=== PATIENT | female | born 1935 | race Caucasian/White ===

== ENCOUNTER → 2020-04-23 08:57 | Outpatient (CLI) | payer MEDICARE, SELFPAY ==
--- NOTE | ~2020-04-23 | CT_ITS ---
EXAMINATION: CT lumbar spine wo con DATE: 04/23/2020 09:40 INDICATION: Lumbar spinal stenosis. TECHNIQUE: Computed tomography (CT) of the lumbar spine was performed without intravenous contrast. A utomated exposure control and iterative reconstruction technique were employed. The dose-length produ ct was 861.79 mGy-cm. COMPARISON: None FINDINGS: There is 14 degrees levoscoliosis of lumbar spine. There is 4 mm anterolisthesis of L4 on L 5. There is a burst fracture of L1 inferior endplate with 1/5 loss of height and 3 mm retropulsion of bone into central spinal canal, likely chronic. There is a burst fracture of L2 superior endplate wi th 1/5 loss of height and retropulsion of bone 4 mm into central spinal canal, likely subacute or chr onic. There is a burst fracture of L4 superior endplate with 2/5 loss of height and retropulsion of b one 4 mm into central spinal canal, likely chronic. There is a compression fracture of L5 inferior en dplate with 2/5 loss of height, likely chronic. There is mildly decreased disc height at L1-L2, moder ately decreased disc height at L3-L4, mildly decreased disc height at L4-L5, and severely decreased d isc height at L5-S1. The following disc levels are specifically discussed: L1-L2: The disc is bulging. There is mild bilateral facet joint osteoarthritis. There is mild left ne ural foraminal stenosis. There is mild central canal stenosis. L2-L3: The disc is bulging. There is mild bilateral facet joint osteoarthritis. There is mild bilater al neural foraminal stenosis. There is mild central canal stenosis. L3-L4: The disc is bulging. There is severe right and moderate left facet joint osteoarthritis. There is mild bilateral neural foraminal stenosis. There is mild central canal stenosis. L4-L5: The disc is bulging. There is severe bilateral facet joint osteoarthritis. There is mild bilat eral neural foraminal stenosis. There is mild central canal stenosis. L5-S1: The disc is bulging. There is severe bilateral facet joint osteoarthritis. There is mild right and moderate left neural foraminal stenosis. There is mild central canal stenosis. IMPRESSION: 1. Severe lumbar spondylosis. 2. Lumbar levoscoliosis. 3. Subacute versus chronic burst fracture of L2. Chronic fractures of L1, L4, and L5. Reviewed, dictated and finalized at location B. IMPRESSION: 1. Severe lumbar spondylosis. 2. Lumbar levoscoliosis. 3. Subacute versus chronic burst fracture of L2. Chronic fractures of L1, L4, a nd L5.
--- NOTE | ~2020-04-23 | CT_ITS ---
EXAMINATION: CT thoracic spine wo con EXAM DATE: 04/23/2020 09:39 INDICATION: Fracture of the lumbar vertebral body. Thoracic arthritis. TECHNIQUE: Spiral CT thoracic spine wo con was performed without contrast. Axial, coronal and sagit dora images were reviewed. The dose-length product (DLP) for this examination was 809.69 mGy-cm. The exposure was tailored according to patient size (auto mA exposure control), and iterative reconstruc tion (ASIR) was used as additional dose reduction technique. There is no prior study for comparison. FINDINGS: There is moderate mid thoracic disc disease from T6 through T9, mild at the other levels. T here is mild mid thoracic dextroscoliosis. Small thoracic endplate osteophytes. The vertebral bodies are aligned in the AP dimension. Minimal anterior wedge appearance to T7, probably chronic minimal co mpression. Paraspinal soft tissue is unremarkable. Cardiac pacemaker leads. No significant thoracic c entral canal or neural foraminal stenosis identified. Paraspinal soft tissue is unremarkable. IMPRESSION: 1. Moderate mid thoracic disc disease, mild thoracic arthropathy. 2. Mild mid thoracic dextroscoliosis. 3. Minimal chronic anterior wedging T7. 4. No acute findings. Reviewed, dictated and finalized at location A.
== END ==
DX: S32.000A Wedge compression fracture of unspecified lumbar vertebra, initial encounter for closed fracture (principal); M48.04 Spinal stenosis, thoracic region; M48.062 Spinal stenosis, lumbar region with neurogenic claudication; X58.XXXA Exposure to other specified factors, initial encounter; M51.24 Other intervertebral disc displacement, thoracic region; M47.896 Other spondylosis, lumbar region
CPT/HCPCS: 72128; 72131

== ENCOUNTER 2020-10-03 15:05 | IRF | payer MEDICARE, SELFPAY ==
--- NOTE | ~2020-10-03 | CT_ITS ---
EXAMINATION: CT brain wo con DATE: 10/13/2020 15:48 INDICATION: Mental status change TECHNIQUE: Computed tomography (CT) of the head was performed without intravenous contrast. The mA wa s adjusted according to patient size. Iterative reconstruction technique was employed. Exam dose: 60 5.33 mGy-cm total exam DLP. COMPARISON: None FINDINGS: There is a moderately large chronic right subdural hematoma measuring up to 18 mm in depth. There is effacement of the cortical sulci of the right cerebral hemisphere and minimal leftward shif t of the midline structures. There is prominent nonspecific patchy diminished attenuation of the cerebral white matter, likely due to chronic small vessel ischemic changes. Prominent bilateral carotid siphon internal carotid artery calcifications as well as bilateral vertebral artery and basilar artery calcifications are noted. No intracranial mass lesion or parenchymal hemorrhage is evident. There is central and cortical cerebral and cerebellar atrophy. No fracture or bone destruction of the cranial vault. The mastoid air cells and included paranasal si nuses are unremarkable. IMPRESSION: Large chronic right subdural hematoma with effacement of the right cerebral cortical sul ci and mild leftward shift of the midline Cerebral atherosclerosis and chronic small vessel ischemic changes of the cerebral white matter Central and cortical cerebral and cerebellar atrophy On 10/13/[address] Kelley telephoned the report to [facility] Nurse Kalen, who indicated she would contact Dr. Leblanc. Reviewed, dictated and finalized at Location A. Reviewed, dictated and finalized at location A. ICATIONS SYSTEMS ANALYST IMPRESSION: Large chronic right subdural hematoma with effacement of the right cerebral cortical sulci and mild leftward shift of the midline Cerebral atherosclerosis and chronic small vessel ischemic changes of the cereb ral white matter Central and cortical cerebral and cerebellar atrophy On 10/13/[address] Kelley telephoned the report to [facility] Nurse terry Higuera ho indicated she would contact Dr. Dove
[2020-10-03 15:05] VITALS: BP 134/65; PULSE 73; RESP 16; TEMP 36.6; O2SAT 93; BMI 26.3
--- NOTE | 2020-10-03 15:12 | ADMGEN ---
This patient, Elinor Mitchell, was admitted to [facility] Room 224-02. Patient/family oriented to hospital policies and general routines including ID bracelet, bed and alarms, visiting hours, pain management, procedures, bathroom and other care routines, personal items, smoking policy, room service/diet, and visiting hours. Information on how to activate the Rapid Response Team has been discussed. Patient/Family are encouraged to report perceived risks to care and to ask questions if they do not understand what they are told or what they should do.
[2020-10-03] MEDS: DOCUSATE SODIUM 100 MG CAPSULE PO (19:52)
[2020-10-03] MEDS: HEPARIN SODIUM 5,000 UNITS/ML VIAL 5000 UNITS SUB-Q (19:52)
[2020-10-03] MEDS: levETIRAcetam 500 MG TABLET PO (19:52)
[2020-10-03] MEDS: LACOSAMIDE (*CRX) 100 MG TABLET PO (19:52)
[2020-10-03] MEDS: MELATONIN 3 MG TABLET PO (19:53)
[2020-10-03 22:00] VITALS: BP 138/60; PULSE 68; RESP 20; TEMP 36.1; O2SAT 95
[2020-10-04 05:24] VITALS: BP 166/72; PULSE 72; RESP 20; TEMP 36.3; O2SAT 96
[2020-10-04 07:01] LABS: Basophils Absolute Auto 0.1 K/mm3 (0.0-0.1); Basophils Percent Auto 0.8 % (0.2-1.2); Eosinophils Absolute Auto 0.1 K/mm3 (0-0.3); Eosinophils Percent Auto 1.3 % (0-4.4); Hematocrit 31.2 % (37.0-47.0); Hemoglobin 10.4 g/dL (12.0-15.0); Immature Granulocyte Absolute 0.03 K/mm3 (0.00-0.031); Immature Granulocyte Percent A 0.4 % (0-0.5); Lymphocytes Percent Auto 17.8 % (18.3-44.2); Mean Corpuscular HGB Conc 33.3 g/dl (32-36); Mean Corpuscular Hemoglobin 32.7 pg (26-34); Mean Corpuscular Volume 98.1 fl (80-100); Mean Platelet Volume 10.6 fl (7.4-10.4); Monocytes Absolute Auto 0.8 K/mm3 (0.1-0.6); Monocytes Percent Auto 10.2 % (2.6-8.5); Neutrophils Absolute Auto 5.5 K/mm3 (1.3-6.7); Neutrophils Percent Auto 69.5 % (45.5-73.1); Platelet Count Result 229 k/mm3 (150-375); Red Blood Count 3.18 M/mm3 (4.2-5.4); Red Cell Distribution Width 12.1 % (11.5-14.5); White Blood Count 7.9 K/mm3 (4.5-10.0)
[2020-10-04 07:17] LABS: Anion Gap 3 mmol/L (8-16); Blood Urea Nitrogen 21 mg/dL (7-17); Calcium 9.7 mg/dL (8.4-10.2); Carbon Dioxide 30 mmol/L (22-30); Chloride 107 mmol/L (98-107); Cholesterol 173 mg/dL (0-200); Estimated CRCL calculation 28 ml/min; Estimated Glomerular Filt Rate 43; Glucose 94 mg/dL (65-105); HDL Direct 39 mg/dL; Potassium 4.1 mmol/L (3.4-5.0); Sodium 140 mmol/L (137-145); Triglycerides 192 mg/dL (<150)
[2020-10-04 07:28] LABS: LDL Cholesterol Direct 107 mg/dL
[2020-10-04] MEDS: CHOLECALCIFEROL 1,000 UNITS TABLET 5000 UNITS PO (09:39)
[2020-10-04] MEDS: EZETIMIBE 10 MG TABLET PO (09:40)
[2020-10-04] MEDS: HEPARIN SODIUM 5,000 UNITS/ML VIAL 5000 UNITS SUB-Q ×2 (09:40→20:46)
[2020-10-04] MEDS: DOCUSATE SODIUM 100 MG CAPSULE PO ×2 (09:40→20:47)
[2020-10-04] MEDS: LACOSAMIDE (*CRX) 100 MG TABLET PO ×2 (10:02→20:47)
[2020-10-04] MEDS: SENNOSIDES 8.6 MG TABLET PO ×2 (10:04→20:47)
[2020-10-04] MEDS: PANTOPRAZOLE 40 MG TABLET PO (10:21)
--- NOTE | 2020-10-04 10:54 | WPDREHABHP ---
H&P: HPI History of Present Illness Date/Time: 10/04/20 10:54 Chief Complaint: brain dysfunction with right subdural hematoma no surgical intervention Narrative: Elinor Mitchell is a 85 year old femaleHISTORY OF PRESENT ILLNESS: The patient's primary rehab impairment category is brain dysfunction that is traumatic in nature The etiologic diagnosis is acute traumatic right subdural hematoma I saw this patient [id number] on October 04, 2020 at 10:00 a.m. The patient is an 85 years old right-handed female with past medical history of hypertension, hyperlipidemia, atrial fibrillation, cerebrovascular accident with right-sided weakness, myocardial infarction, permanent pacemaker placement, and chronic kidney disease who presented to a local hospital on September 19, 2020 after suffering a fall at home on September 18, 2020. Patient reported that she was putting place away when she slipped backwards and fell onto a chair before falling to the floor and hitting her head. The patient denied loss of consciousness. The patient reported feeling fine afterwards but awoke the day of presentation with a headache and upper back pain. Patient endorsed taking Tylenol but vomiting and felt queasy when lying flat. Initial head CT scan revealed 1.6cm acute subdural hematoma. CT of the cervical spine revealed no fractures. She was transferred to [facility] for neurological evaluation and treatment. Neurosurgical service was consulted who ordered an urgent head thoracic and lumbar spine CT scan. The patient was also placed on Keppra b.i.d. prophylactically. During her hospitalization the patient develops seizures and required continued Keppra and lacosamide. Significant conditions included acute pain, hypoactive ICU delirium, shock due to sepsis from a urinary tract infection and aspiration pneumonia, and infiltrated right upper extremity peripheral intravenous line, atrial fibrillation, bradycardia, hyperlipidemia, acute hypoxic respiratory failure, acute kidney injury on stage 4 chronic kidney disease and dysphagia. The patient pain was currently controlled with oral analgesics, she was placed on ramelteon for the ICU delirium and placed on sleep hygiene with the improvement she was given intravenous vancomycin cefepime total of 7 days, her right upper extremity was being elevated with warm compresses with no evidence of tissue necrosis, atrial fibrillation was stable and being monitored since patient was off anticoagulation given her subdural hematoma, patient has a pacemaker and the bradycardia was asymptomatic hyperlipidemia was being treated with home dose of ezetemibe, patient has acute respiratory failure had resolved and she was currently on room air and being treated with CP T vest t.i.d. to aid with secretion mobilization, the patient BUN and creatinine continued to be monitored and her medications were renally dosed, the patient diet had been advanced to mechanical soft diet with nectar thickened liquids. She was discharged to rehab on subcutaneous heparin q.12 hours for DVT prophylaxis and was to remain on this until she has completed rehab and is discharged. #covid: the patient has not traveled outside the [place] or had contact with someone who is ill that is travel outside the [place] in the past 21 days. The patient has not traveled to an area of the [place] that is experiencing known transmission of the Coronavirus and has not had close personal contact with anyone that has. The patient does not have a fever. The patient is not experiencing lower respiratory illness symptoms. The patient has however during her hospitalization at difficulty with breathing related to aspiration pneumonia that has been treated. She is currently on room air patient tested negative for COVID-19 on October 01, 2020. therapy was initiated at the acute care facility and the patient was transferred to us from [facility] on October 03, 2020 FALLS OR SURGERIES: the patient has
[2020-10-04] MEDS: NIFEdipine 30 MG TAB.ER.24 PO (11:50)
[2020-10-04] MEDS: ISOSORBIDE MONONITRATE 60 MG TAB.ER.24H PO (11:50)
[2020-10-04] MEDS: METOPROLOL SUCCINATE EXT REL 100 MG TABCR PO (11:50)
[2020-10-04] MEDS: levETIRAcetam 500 MG TABLET PO ×2 (11:51→20:46)
[2020-10-04 12:06] VITALS: BMI 26.3
--- NOTE | 2020-10-04 12:39 | PCNSR ---
On 10/04/20, the student, Violette Ramos, provided care and completed [facility] on this patient. I have reviewed the student's documentation and agree with the findings.
--- NOTE | 2020-10-04 12:57 | PCSTNOTE ---
Please refer to the Bedside Swallow Evaluation in the EMR. Please note, silent aspiration cannot be ruled out at bedside.
[2020-10-04 14:00] VITALS: BP 94/56; PULSE 72; RESP 18; TEMP 36.9; O2SAT 93
--- NOTE | 2020-10-04 15:35 | RPD ---
INDIVIDUALIZED PLAN OF CARE FOR Elinor Mitchell Brief Synthesis of Pre-Admission Screen, Post-Admission Evaluation and Therapy Evaluations: The patient presents to rehab with an acute traumatic right subdural hematoma. Comorbidities include atrial fibrillation, right parietal intraparenchymal hemorrhage, small left parietal intraparenchymal hemorrhage with brain compression, seizures, acute pain, ICU delirium, shock due to sepsis, pneumonia, urinary tract infection, hyperlipidemia, coagulopathy, normocytic anemia, atelectasis, acute on chronic kidney injury (stage 4), electrolyte imbalance, and hyperglycemia. This patient requires intensive therapies to restore lost function due to an acute traumatic right subdural hematoma, right intraparenchymal hemorrhage with brain compression, and anticoagulation induced coagulopathy in order to maximize their functional level of independence and quality of life. The complexity of the patient's medical management, nursing, and therapy needs require an inpatient rehab hospital stay with a physician-led interdisciplinary team approach. The patient?s needs will be best met in an intensive program vs. at a lower level of care. The patient requires physician services for neurology services, medical oversight, and coordination of care. Emotional needs will be monitored as depression is a common sequelae of neurological events. The patient needs physician monitoring and treatment of anemia, seizures, urinary tract infection, atrial fibrillation, bradycardia, acute hypoxic respiratory failure due to aspiration pneumonia, acute on chronic kidney injury, dysphagia, monitoring for adverse reactions to new medications, monitoring of infection, pain control. The patient requires nursing services for frequent neuro checks, anticoagulation therapy, medication management and education, pressure relief and skin care management, monitoring of labs, bowel and bladder training, and fall/safety precautions. Deficits include:ADLs, Balance, Cognition, Endurance, Family Training/Education, Mobility, Pain Management, ROM, Safety, Strength, Transfers, and Swallowing. Entry Level Manufacturing Engineer/Case Management for: Discharge Planning and Patient/Family Counseling Physical Therapy: 5 days per week for 60 minutes. Treatments may include: Therapeutic Exercise, Gait Training, Neuromuscular Re-education, Transfer Training, Community Reintegration, Bed Mobility, Patient/Family Education, Wheelchair Mobility Group Therapy/Concurrent Therapy Rationales: -Improve attention span during functional activities in a distracted environment. -Enhance problem solving and/or adequate judgment skills during functional activities in a distracted environment. -Promote increased safety awareness in a distracted environment to reduce fall risk with functional tasks, transfers, and ambulation to allow a more safe, self-sufficient return to the home environment. -Improve dynamic balance skills to promote safety and independence with functional activities in a distracted environment for maximum gain. Occupational Therapy: 5 days per week for 60 minutes. Treatments may include: Therapeutic Exercise, Therapeutic Activity, Cognitive Training, Self-Care Transfer Training, Community Reintegration, Home Management, Patient/Family Education, Wheelchair Mobility Training, Energy Conservation Training Group Therapy/Concurrent Therapy Rationales: -Allow therapist to observe and teach generalization and carry-over of skills learned in individual therapy. -Enhance problem solving and sequencing skills during therapeutic activities in a distracted environment. -Promote increased safety awareness in a realistic setting to reduce fall risk with functional tasks due to visual and verbal distractions. -Increase functional level with ADLs, ADL transfers and use of adaptive equipment through therapeutic activities with others while promoting safety to allow a more safe, self-sufficient return home. Speech Therapy:
[2020-10-04 20:00] VITALS: PULSE 72; RESP 18; O2SAT 93
[2020-10-04] MEDS: MELATONIN 3 MG TABLET PO (20:47)
[2020-10-04 22:00] VITALS: BP 127/61; PULSE 80; RESP 20; TEMP 37.3; O2SAT 93
[2020-10-05 05:25] VITALS: BP 160/82; PULSE 74; RESP 18; TEMP 37.2; O2SAT 93
[2020-10-05 08:30] VITALS: BMI 10.0
[2020-10-05] MEDS: DOCUSATE SODIUM 100 MG CAPSULE PO ×2 (08:44→20:15)
[2020-10-05] MEDS: CHOLECALCIFEROL 1,000 UNITS TABLET 5000 UNITS PO (08:44)
[2020-10-05] MEDS: EZETIMIBE 10 MG TABLET PO (08:44)
[2020-10-05] MEDS: HEPARIN SODIUM 5,000 UNITS/ML VIAL 5000 UNITS SUB-Q ×2 (08:44→20:15)
[2020-10-05] MEDS: ISOSORBIDE MONONITRATE 60 MG TAB.ER.24H PO (08:44)
[2020-10-05] MEDS: levETIRAcetam 500 MG TABLET PO ×2 (08:45→20:15)
[2020-10-05 08:46] VITALS: PULSE 74
[2020-10-05] MEDS: PANTOPRAZOLE 40 MG TABLET PO (08:46)
[2020-10-05] MEDS: METOPROLOL SUCCINATE EXT REL 100 MG TABCR PO (08:46)
[2020-10-05] MEDS: SENNOSIDES 8.6 MG TABLET PO ×2 (08:46→20:15)
[2020-10-05] MEDS: NIFEdipine 30 MG TAB.ER.24 PO (08:46)
[2020-10-05] MEDS: LACOSAMIDE (*CRX) 100 MG TABLET PO ×2 (08:47→20:14)
[2020-10-05 14:00] VITALS: BP 110/50; PULSE 71; RESP 18; TEMP 37.1; O2SAT 94
--- NOTE | 2020-10-05 14:43 | PC.NURSE ---
1400, patient unable to comprehend the concept of using the incentive spirometer.
--- NOTE | 2020-10-05 15:18 | PC.NURSE ---
Attempted to return patient to bed with sandie amado and patient was not participating and very lethargic; needing to use sternal rub to get any movement or eyes open. After returning to bed, had more movement and later rolled over on own. Earlier patient was very sleepy with therapy. Called Dr. Leblanc and he ordered Decadron/Dexamethasone 4 mg PO Q6 hours x5 days, believing it is from swelling of the brain. Will continue to monitor.
[2020-10-05] MEDS: DEXAMETHASONE 4 MG TABLET PO ×2 (17:19→23:32)
[2020-10-05 20:00] VITALS: PULSE 71; RESP 18; O2SAT 94
[2020-10-05] MEDS: MELATONIN 3 MG TABLET PO (20:14)
[2020-10-05 21:29] VITALS: BP 144/63; PULSE 77; RESP 18; TEMP 36.3; O2SAT 92
[2020-10-06] MEDS: DEXAMETHASONE 4 MG TABLET PO ×4 (05:58→23:53)
[2020-10-06 06:00] VITALS: BP 149/71; PULSE 72; RESP 18; TEMP 36.3; O2SAT 92
[2020-10-06] MEDS: HEPARIN SODIUM 5,000 UNITS/ML VIAL 5000 UNITS SUB-Q ×2 (09:02→20:56)
[2020-10-06] MEDS: DOCUSATE SODIUM 100 MG CAPSULE PO ×2 (09:03→20:55)
[2020-10-06] MEDS: SENNOSIDES 8.6 MG TABLET PO ×2 (09:03→20:55)
[2020-10-06] MEDS: EZETIMIBE 10 MG TABLET PO (09:03)
[2020-10-06] MEDS: PANTOPRAZOLE 40 MG TABLET PO (09:03)
[2020-10-06] MEDS: ISOSORBIDE MONONITRATE 60 MG TAB.ER.24H PO (09:03)
[2020-10-06] MEDS: CHOLECALCIFEROL 1,000 UNITS TABLET 5000 UNITS PO (09:03)
[2020-10-06 09:04] VITALS: PULSE 72
[2020-10-06] MEDS: METOPROLOL SUCCINATE EXT REL 100 MG TABCR PO (09:04)
[2020-10-06] MEDS: levETIRAcetam 500 MG TABLET PO ×2 (09:04→20:55)
[2020-10-06] MEDS: NIFEdipine 30 MG TAB.ER.24 PO (09:04)
[2020-10-06] MEDS: LACOSAMIDE (*CRX) 100 MG TABLET PO ×2 (09:06→20:55)
--- NOTE | 2020-10-06 11:44 | WPDNEURORHBP ---
Subjective Date/time seen: 10/06/20 11:44 85 years old with right subdural hematoma but no surgical intervention and resultant brain dysfunction in addition to the history of hypertension, hyperlipidemia, atrial fibrillation, and cerebrovascular accident with right-sided weakness she has a permanent pacemakerchronic kidney disease, she remains intermittently drowsy but definitely awake alert at times and could carry some of the conversation she has remained afebrile with temp of 36.3? pulse 72 respirations 18 pulse ox 92% and the blood pressure is 149/71 her last labs was on 122 with no significant abnormalities, she is being carried out on vitamin-D [place], on Zetia, on DVT prophylaxis, Keppra and lacosamide for seizure prevention and also started on 5 days course of dexamethasone. Review of Systems Review of Systems: All systems reviewed & are unremarkable except as noted in HPI and below Functional Status Ambulation Ability Ambulation Assistive Devices: Parallel Bars Exam Const: General: cooperative, comfortable, alert and awake Nutritional Appearance: average body habitus Orientation/consciousness: oriented to place and Other orientation findings ( at times obtunded) HENMT: Head: normal to inspection General nose exam: Normal external nose present and No nasal discharge present Face and sinus: normal facial exam Mouth: Yes Normal oral and palatal mucosa present Eyes: General: appearance normal, both eyes and all related structures Neck: Neck: full ROM Resp: Effort & Inspection: normal respiratory effort and decreased respiratory effort Auscultation: clear to auscultation bilaterally Cardio: Jugular venous distension: no JVD Rate: regular rate Rhythm: regular rhythm GI: Auscultation: normal bowel sounds Skin: General skin exam: no rashes or lesions noted Neuro: General: oriented to person and moves all extremities Cranial nerves: Yes CN's II-XII intact bilaterally, Yes Equal, round and reactive pupils present, Yes Bilaterally intact EOM present, Yes Nystagmus not present, Yes facial symmetry, Yes Midline tongue present and Yes Ability to bilaterally elevate shoulders present Speech: Other speech findings present (Neuro) ( slow responses but appropriate) Gait exam (Neuro): Unable to assess gait Motor exam (neuro): Abnormal motor strength present ( generally decreased superimposed on underlying right-sided weakness) Psych: Mental Status: other ( slow responses) Speech and movement: Slowed speech present (Psych) Affect: Sad affect present Attitude: cooperative Thought process: Other thought process findings present ( not much conversation) Insight: Limited insight present (Psych) Judgement: Limited judgement present (Psych) Objective Data Vital Signs Vital Signs: Vital Signs - 24 hr 10/05/20 14:00 10/05/20 20:00 10/05/20 21:29 Temperature 37.1 C 36.3 C L Pulse Rate 71 71 77 Respiratory Rate 18 18 18 Blood Pressure 110/50 L 144/63 H Pulse Oximetry 94 94 92 10/06/20 06:00 10/06/20 09:04 Temperature 36.3 C L Pulse Rate 72 72 Respiratory Rate 18 Blood Pressure 149/71 H Pulse Oximetry 92 Intake/Output Intake/Output: Intake & Output 10/03/20 10/04/20 10/05/20 10/06/20 23:59 23:59 23:59 23:59 Intake Total 720 1080 240 Balance 720 1080 240 Meds/Results Medications: Active Medications Generic Name Dose Route Start Last Admin Trade Name Freq PRN Reason Stop Dose Admin Acetaminophen 650 mg 10/03/20 15:53 Acetaminophen 325 Mg Tablet PO Q4H PRN Pain Bisacodyl 10 mg 10/03/20 15:53 Bisacodyl 10 Mg Suppository RECTAL DAILY PRN Constipation Dexamethasone 4 mg 10/05/20 18:00 10/06/20 05:58 Dexamethasone 4 Mg Tablet PO 4 mg Q6HR ANTONIO Administration Docusate Sodium 100 mg 10/03/20 21:00 10/06/20 09:03 Docusate Sodium 100 Mg Capsule PO 100 mg Q12HR ANTONIO Administration Ezetimibe 10 mg 10/04/20 09:00 10/06/20 09:03 Ezetimibe 10 Mg Tabl
[2020-10-06 14:00] VITALS: BP 121/61; PULSE 76; RESP 18; TEMP 37.1; O2SAT 96
[2020-10-06 20:00] VITALS: PULSE 77; RESP 20; O2SAT 96
[2020-10-06 20:38] VITALS: BP 147/73; PULSE 77; RESP 20; TEMP 36.6; O2SAT 96
[2020-10-06] MEDS: MELATONIN 3 MG TABLET PO (20:54)
[2020-10-07 05:18] VITALS: BP 183/86; PULSE 77; RESP 20; TEMP 36.6; O2SAT 96
[2020-10-07] MEDS: DEXAMETHASONE 4 MG TABLET PO ×4 (05:45→23:59)
[2020-10-07] MEDS: lisinopriL 10 MG TABLET PO (05:45)
[2020-10-07] MEDS: CHOLECALCIFEROL 1,000 UNITS TABLET 5000 UNITS PO (09:04)
[2020-10-07] MEDS: HEPARIN SODIUM 5,000 UNITS/ML VIAL 5000 UNITS SUB-Q ×2 (09:05→21:09)
[2020-10-07] MEDS: DOCUSATE SODIUM 100 MG CAPSULE PO ×2 (09:05→21:09)
[2020-10-07] MEDS: ISOSORBIDE MONONITRATE 60 MG TAB.ER.24H PO (09:05)
[2020-10-07] MEDS: levETIRAcetam 500 MG TABLET PO ×2 (09:05→21:08)
[2020-10-07] MEDS: EZETIMIBE 10 MG TABLET PO (09:05)
[2020-10-07] MEDS: METOPROLOL SUCCINATE EXT REL 100 MG TABCR PO (09:06)
[2020-10-07] MEDS: NIFEdipine 30 MG TAB.ER.24 PO (09:06)
[2020-10-07] MEDS: PANTOPRAZOLE 40 MG TABLET PO (09:06)
[2020-10-07] MEDS: SENNOSIDES 8.6 MG TABLET PO ×2 (09:06→21:08)
[2020-10-07] MEDS: LACOSAMIDE (*CRX) 100 MG TABLET PO ×2 (09:09→21:09)
--- NOTE | 2020-10-07 12:59 | PCNFU ---
Nutrition Follow-Up Complete: Inadequate energy needs related to poor appetite as evidenced by patient refusing to eat at meals. Goal: Patient to consume 75% of meals/supplements or greater Patient has made major improvements since the last time I spoke with her. She is now consuming 75-100% of meals. No new goal at this time. Pt current nutrition is a regular diet level 7 with soft and bite sized level 6. Last recorded weight is 71.8 kg. Bowel Motility: + BM 10/06/2020 Labs Reviewed: No new labs reported. Meds Noted: zetia, protonix, toprol xl, keppra tablet, vimpat, imdur, colace capsule Additional Notes: Patient seen for a follow up today. Her oral intake has gotten significantly better. She is enjoying all flavors of ensure enlive which is being provided TID. Will monitor, weight, labs, medications, and oral intake every 5 days.
[2020-10-07 14:00] VITALS: BP 115/64; PULSE 68; RESP 20; TEMP 37.1; O2SAT 99
--- NOTE | 2020-10-07 14:26 | PCNSR ---
On 10/07/20, the student, Violette Ramos, provided care and completed [facility] documentation on this patient. I have reviewed the student's documentation and agree with the findings. Noted patient is also receiving level 2 liquids in addition to level 6 solids.
[2020-10-07 20:00] VITALS: PULSE 70; RESP 14; O2SAT 94
[2020-10-07] MEDS: MELATONIN 3 MG TABLET PO (21:08)
[2020-10-07 21:25] VITALS: BP 152/81; PULSE 70; RESP 14; TEMP 36.3; O2SAT 94
[2020-10-08 05:34] VITALS: BP 166/84; PULSE 72; RESP 14; TEMP 35.8; O2SAT 95
[2020-10-08] MEDS: DEXAMETHASONE 4 MG TABLET PO ×3 (05:39→17:17)
[2020-10-08] MEDS: ISOSORBIDE MONONITRATE 60 MG TAB.ER.24H PO (05:39)
--- NOTE | 2020-10-08 05:41 | PC.NURSE ---
BP at 0530 was 166/84. 0900 dose of Isosorbide given early to address. Will notify oncoming staff and Dr. Leblanc.
[2020-10-08] MEDS: CHOLECALCIFEROL 1,000 UNITS TABLET 5000 UNITS PO (08:22)
[2020-10-08] MEDS: DOCUSATE SODIUM 100 MG CAPSULE PO ×2 (08:22→21:43)
[2020-10-08] MEDS: levETIRAcetam 500 MG TABLET PO ×2 (08:23→21:43)
[2020-10-08] MEDS: HEPARIN SODIUM 5,000 UNITS/ML VIAL 5000 UNITS SUB-Q ×2 (08:23→21:44)
[2020-10-08] MEDS: EZETIMIBE 10 MG TABLET PO (08:23)
[2020-10-08] MEDS: NIFEdipine 30 MG TAB.ER.24 PO (08:24)
[2020-10-08] MEDS: SENNOSIDES 8.6 MG TABLET PO ×2 (08:24→21:43)
[2020-10-08] MEDS: PANTOPRAZOLE 40 MG TABLET PO (08:24)
[2020-10-08] MEDS: METOPROLOL SUCCINATE EXT REL 100 MG TABCR PO (08:24)
[2020-10-08] MEDS: LACOSAMIDE (*CRX) 100 MG TABLET PO ×2 (08:30→21:43)
--- NOTE | 2020-10-08 11:22 | WPDNEURORHBP ---
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 respiration 14 pulse 72 blood pressure 166/84 Review of Systems Review of Systems: All systems reviewed & are unremarkable except as noted in HPI and below Functional Status Ambulation Ability Ambulation Assistive Devices: Walker, Wheeled Exam Const: General: comfortable, no acute distress, awake and anxious Nutritional Appearance: well nourished Orientation/consciousness: oriented to person HENMT: Ears: hearing grossly normal bilaterally General nose exam: Normal external nose present and No nasal discharge present Eyes: General: appearance normal, both eyes and all related structures Alignment and Position: alignment normal Periorbital: periorbital findings normal Eyelids: eyelids normal Conjunctivae: conjunctivae normal Cornea: corneas normal Pupils: Equal, round and reactive pupils present EOM: EOMs intact bilaterally Neck: Neck: full ROM and no lymphadenopathy Resp: Effort & Inspection: normal respiratory effort Auscultation: clear to auscultation bilaterally Cardio: Jugular venous distension: no JVD Rate: regular rate Rhythm: regular rhythm Neuro: General: oriented to person and confusion Cranial nerves: Yes CN's II-XII intact bilaterally Cognition (Neuro): abnormal cognition ( noted to have some hallucination) Gait exam (Neuro): Unable to assess gait Motor exam (neuro): Abnormal motor strength present Sensory Exam: Sensory deficit (Neuro) Deep tendon reflexes (DTR's): Right triceps reflex intensity grade: 1+, Left triceps reflex intensity grade: 1+, Rt Biceps (C5, C6): 1+, Left biceps reflex intensity grade: 1+, Right brachioradialis reflex intensity grade: 1+, Left brachioradialis reflex intensity grade: 1+, Right patellar reflex intensity grade: 1+ and Left patellar reflex intensity grade: 1+ Psych: Mental Status: other ( intermittent confusion and today noted by the nurses as well that she is h) Objective Data Vital Signs Vital Signs: Vital Signs - 24 hr 10/07/20 14:00 10/07/20 20:00 10/07/20 21:25 Temperature 37.1 C 36.3 C L Pulse Rate 68 70 70 Respiratory Rate 20 14 14 Blood Pressure 115/64 152/81 H Pulse Oximetry 99 94 94 10/08/20 05:34 Temperature 35.8 C L Pulse Rate 72 Respiratory Rate 14 Blood Pressure 166/84 H Pulse Oximetry 95 Intake/Output Intake/Output: Intake & Output 10/05/20 10/06/20 10/07/20 10/08/20 23:59 23:59 23:59 23:59 Intake Total 5151 836 7874 240 Balance 7525 599 8480 240 Meds/Results Medications: Active Medications Generic Name Dose Route Start Last Admin Trade Name Freq PRN Reason Stop Dose Admin Acetaminophen 650 mg 10/03/20 15:53 Acetaminophen 325 Mg Tablet PO Q4H PRN Pain Bisacodyl 10 mg 10/03/20 15:53 Bisacodyl 10 Mg Suppository RECTAL DAILY PRN Constipation Dexamethasone 4 mg 10/05/20 18:00 10/08/20 05:39 Dexamethasone 4 Mg Tablet PO 4 mg Q6HR ANTONIO Administration Docusate Sodium 100 mg 10/03/20 21:00 10/08/20 08:22 Docusate Sodium 100 Mg Capsule PO 100 mg Q12HR ANTONIO Administration Ezetimibe 10 mg 10/04/20 09:00 10/08/20 08:23 Ezetimibe 10 Mg Tablet PO 10 mg DAILY ANTONIO Administration Heparin Sodium (Porcine) 5,000 units 10/03/20 21:00 10/08/20 08:23 Heparin Sodium 5,000 Units/Ml Vial SUB-Q 5,000 units Q12HR ANTONIO Administration Isosorbide Mononitrate 60 mg 10/04/20 09:00 10/08/20 05:39 Isosorbide Mononitrate 60 Mg Tab.Er.24h PO 60 mg DAILY ANTONIO Administration Lacosamide 100 mg 10/03/20 21:00 10/08/20 08:30 Lacosamide (*Crx) 100 Mg Tablet PO 100 mg Q12HR ANTONIO Administra
[2020-10-08 14:00] VITALS: BP 131/71; PULSE 70; RESP 18; TEMP 36.6; O2SAT 92
[2020-10-08 20:00] VITALS: PULSE 70; RESP 18; O2SAT 92
[2020-10-08] MEDS: MELATONIN 3 MG TABLET PO (21:43)
[2020-10-08 22:00] VITALS: BP 135/64; PULSE 79; RESP 18; TEMP 36.8; O2SAT 97
[2020-10-09] MEDS: DEXAMETHASONE 4 MG TABLET PO ×4 (00:13→17:25)
[2020-10-09 06:00] VITALS: BP 126/74; PULSE 72; RESP 20; TEMP 36.7; O2SAT 97
[2020-10-09] MEDS: HEPARIN SODIUM 5,000 UNITS/ML VIAL 5000 UNITS SUB-Q (09:05)
[2020-10-09] MEDS: ISOSORBIDE MONONITRATE 60 MG TAB.ER.24H PO (09:05)
[2020-10-09] MEDS: DOCUSATE SODIUM 100 MG CAPSULE PO ×2 (09:05→20:12)
[2020-10-09] MEDS: levETIRAcetam 500 MG TABLET PO ×2 (09:05→20:12)
[2020-10-09] MEDS: NIFEdipine 30 MG TAB.ER.24 PO (09:05)
[2020-10-09] MEDS: SENNOSIDES 8.6 MG TABLET PO ×2 (09:05→20:12)
[2020-10-09 09:06] VITALS: PULSE 72
[2020-10-09] MEDS: CHOLECALCIFEROL 1,000 UNITS TABLET 5000 UNITS PO (09:06)
[2020-10-09] MEDS: PANTOPRAZOLE 40 MG TABLET PO (09:06)
[2020-10-09] MEDS: EZETIMIBE 10 MG TABLET PO (09:06)
[2020-10-09] MEDS: METOPROLOL SUCCINATE EXT REL 100 MG TABCR PO (09:06)
[2020-10-09] MEDS: LACOSAMIDE (*CRX) 100 MG TABLET PO ×2 (09:08→20:12)
--- NOTE | 2020-10-09 10:05 | WPDNEURORHBP ---
Subjective Date/time seen: 10/09/20 10:05 85 years old with right-sided subdural hematoma but no surgical intervention and resultant brain dysfunction has been X is improving significantly Review of Systems Review of Systems: All systems reviewed & are unremarkable except as noted in HPI and below Functional Status Ambulation Ability Ability to Ambulate 10 Feet: Minimum Assistance X 1 Ambulation Assistive Devices: Walker, Wheeled Exam Const: General: cooperative, comfortable and no acute distress Nutritional Appearance: well nourished Orientation/consciousness: patient oriented x3 Limitations: no limitations Eyes: General: appearance normal, both eyes and all related structures Periorbital: periorbital findings normal Eyelids: eyelids normal Conjunctivae: conjunctivae normal Sclera: sclerae normal Cornea: corneas normal Pupils: Equal, round and reactive pupils present EOM: EOMs intact bilaterally Neck: Neck: full ROM and no lymphadenopathy Resp: Effort & Inspection: able to speak in complete sentences Auscultation: clear to auscultation bilaterally Cardio: Jugular venous distension: no JVD Rate: regular rate Rhythm: regular rhythm GI: Auscultation: normal bowel sounds Neuro: General: oriented to person and oriented to place Cranial nerves: Yes CN's II-XII intact bilaterally, Yes Equal, round and reactive pupils present, Yes Nystagmus not present, Yes Normal facial strength present, Yes Midline tongue present, Yes Normal hearing present and Yes Ability to bilaterally elevate shoulders present Cognition (Neuro): normal cognition Gait exam (Neuro): Unable to assess gait Motor exam (neuro): Abnormal motor strength present Sensory Exam: normal sensation Psych: Appearance: grossly normal Mental Status: mental status grossly normal Affect: normal affect Attitude: cooperative Thought process: Normal thought process present Thought content: Yes Normal thought content present Insight: Good insight present (Psych) Judgement: Good judgement present (Psych) Objective Data Vital Signs Vital Signs: Vital Signs - 24 hr 10/08/20 14:00 10/08/20 20:00 10/08/20 22:00 Temperature 36.6 C 36.8 C Pulse Rate 70 70 79 Respiratory Rate 18 18 18 Blood Pressure 131/71 135/64 Pulse Oximetry 92 92 97 10/09/20 06:00 10/09/20 09:06 Temperature 36.7 C Pulse Rate 72 72 Respiratory Rate 20 Blood Pressure 126/74 Pulse Oximetry 97 Intake/Output Intake/Output: Intake & Output 10/06/20 10/07/20 10/08/20 10/09/20 23:59 23:59 23:59 23:59 Intake Total 720 1080 820 560 Balance 720 1080 820 560 Meds/Results Medications: Active Medications Generic Name Dose Route Start Last Admin Trade Name Freq PRN Reason Stop Dose Admin Acetaminophen 650 mg 10/03/20 15:53 Acetaminophen 325 Mg Tablet PO Q4H PRN Pain Bisacodyl 10 mg 10/03/20 15:53 Bisacodyl 10 Mg Suppository RECTAL DAILY PRN Constipation Dexamethasone 4 mg 10/05/20 18:00 10/09/20 06:29 Dexamethasone 4 Mg Tablet PO 4 mg Q6HR ANTONIO Administration Docusate Sodium 100 mg 10/03/20 21:00 10/09/20 09:05 Docusate Sodium 100 Mg Capsule PO 100 mg Q12HR ANTONIO Administration Ezetimibe 10 mg 10/04/20 09:00 10/09/20 09:06 Ezetimibe 10 Mg Tablet PO 10 mg DAILY ANTONIO Administration Heparin Sodium (Porcine) 5,000 units 10/03/20 21:00 10/09/20 09:05 Heparin Sodium 5,000 Units/Ml Vial SUB-Q 5,000 units Q12HR ANTONIO Administration Isosorbide Mononitrate 60 mg 10/04/20 09:00 10/09/20 09:05 Isosorbide Mononitrate 60 Mg Tab.Er.24h PO 60 mg DAILY ANTONIO Administration Lacosamide 100 mg 10/03/20 21:00 10/09/20 09:08 Lacosamide (*Crx) 100 Mg Tablet PO 100 mg Q12HR ANTONIO Administration Levetiracetam 500 mg 10/03/20 21:00 10/09/20 09:05 Levetiracetam 500 Mg Tablet PO 500 mg Q12HR ANTONIO Administration Melatonin 3 mg 10/03/20 21:00 10/08/20 21:43 Melatonin 3 Mg Tablet PO 3 mg
--- NOTE | 2020-10-09 11:53 | PCPTNOTE ---
Elinor Mitchell was evaluated for a wheeled walker on 10/09/2020 by this physical therapist. The wheeled walker will resolve patient's mobility limitations and will be used for ADL's within the home. The patient can safely use the wheeled walker. ?The wheeled walker will resolve the patient?s mobility deficits, including decreased B LE strength, endurance, and balance.
[2020-10-09 14:00] VITALS: BP 130/65; PULSE 70; RESP 18; TEMP 35.9; O2SAT 97
[2020-10-09] MEDS: MELATONIN 3 MG TABLET PO (20:12)
[2020-10-09 20:25] VITALS: PULSE 70; RESP 18; O2SAT 97
[2020-10-09 22:00] VITALS: BP 136/69; PULSE 68; RESP 18; TEMP 36.4; O2SAT 95
[2020-10-10] MEDS: HEPARIN SODIUM 5,000 UNITS/ML VIAL 5000 UNITS SUB-Q ×3 (00:13→20:15)
[2020-10-10] MEDS: DEXAMETHASONE 4 MG TABLET PO ×5 (00:16→23:44)
[2020-10-10 05:51] VITALS: BP 155/78; PULSE 70; RESP 18; TEMP 35.9; O2SAT 99
[2020-10-10 09:31] VITALS: PULSE 68
[2020-10-10] MEDS: METOPROLOL SUCCINATE EXT REL 100 MG TABCR PO (09:31)
[2020-10-10] MEDS: NIFEdipine 30 MG TAB.ER.24 PO (09:31)
[2020-10-10] MEDS: SENNOSIDES 8.6 MG TABLET PO ×2 (09:32→20:14)
[2020-10-10] MEDS: DOCUSATE SODIUM 100 MG CAPSULE PO ×2 (09:32→20:14)
[2020-10-10] MEDS: EZETIMIBE 10 MG TABLET PO (09:32)
[2020-10-10] MEDS: PANTOPRAZOLE 40 MG TABLET PO (09:32)
[2020-10-10] MEDS: levETIRAcetam 500 MG TABLET PO ×2 (09:32→20:15)
[2020-10-10] MEDS: CHOLECALCIFEROL 1,000 UNITS TABLET 5000 UNITS PO (09:33)
[2020-10-10] MEDS: ISOSORBIDE MONONITRATE 60 MG TAB.ER.24H PO (09:33)
[2020-10-10] MEDS: LACOSAMIDE (*CRX) 100 MG TABLET PO ×2 (10:15→20:15)
[2020-10-10 14:00] VITALS: BP 131/68; PULSE 77; RESP 21; TEMP 36.8; O2SAT 95
[2020-10-10 20:00] VITALS: PULSE 77; RESP 21; O2SAT 95
[2020-10-10] MEDS: MELATONIN 3 MG TABLET PO (20:14)
[2020-10-10 22:00] VITALS: BP 158/75; PULSE 64; RESP 18; TEMP 36.8; O2SAT 99
[2020-10-11 05:01] LABS: Hematocrit 30.3 % (37.0-47.0); Hemoglobin 10.3 g/dL (12.0-15.0); Immature Granulocyte Absolute 0.05 K/mm3 (0.00-0.031); Immature Granulocyte Percent A 0.7 % (0-0.5); Lymphocytes Absolute Auto 0.41 K/mm3 (0.9-3.2); Lymphocytes Percent Auto 5.7 % (18.3-44.2); Mean Corpuscular Hemoglobin 33.1 pg (26-34); Mean Corpuscular Volume 97.4 fl (80-100); Mean Platelet Volume 10.6 fl (7.4-10.4); Monocytes Absolute Auto 0.3 K/mm3 (0.1-0.6); Monocytes Percent Auto 3.5 % (2.6-8.5); Neutrophils Absolute Auto 6.4 K/mm3 (1.3-6.7); Neutrophils Percent Auto 90.1 % (45.5-73.1); Platelet Count Result 189 k/mm3 (150-375); Red Blood Count 3.11 M/mm3 (4.2-5.4); Red Cell Distribution Width 12.2 % (11.5-14.5); White Blood Count 7.2 K/mm3 (4.5-10.0)
[2020-10-11 05:36] LABS: Anion Gap 3 mmol/L (8-16); Blood Urea Nitrogen 55 mg/dL (7-17); Carbon Dioxide 29 mmol/L (22-30); Chloride 101 mmol/L (98-107); Estimated CRCL calculation 22 ml/min; Estimated Glomerular Filt Rate 33; Glucose 120 mg/dL (65-105); Potassium 4.9 mmol/L (3.4-5.0); Sodium 133 mmol/L (137-145)
[2020-10-11] MEDS: DEXAMETHASONE 4 MG TABLET PO ×4 (05:42→23:45)
[2020-10-11 06:00] VITALS: BP 153/79; PULSE 65; RESP 18; TEMP 36.6; O2SAT 99
[2020-10-11] MEDS: SENNOSIDES 8.6 MG TABLET PO ×2 (08:32→21:10)
[2020-10-11] MEDS: NIFEdipine 30 MG TAB.ER.24 PO (08:32)
[2020-10-11] MEDS: HEPARIN SODIUM 5,000 UNITS/ML VIAL 5000 UNITS SUB-Q ×2 (08:32→21:15)
[2020-10-11] MEDS: PANTOPRAZOLE 40 MG TABLET PO (08:32)
[2020-10-11 08:33] VITALS: PULSE 65
[2020-10-11] MEDS: levETIRAcetam 500 MG TABLET PO ×2 (08:33→21:09)
[2020-10-11] MEDS: METOPROLOL SUCCINATE EXT REL 100 MG TABCR PO (08:33)
[2020-10-11] MEDS: EZETIMIBE 10 MG TABLET PO (08:33)
[2020-10-11] MEDS: DOCUSATE SODIUM 100 MG CAPSULE PO ×2 (08:35→21:10)
[2020-10-11] MEDS: ISOSORBIDE MONONITRATE 60 MG TAB.ER.24H PO (08:35)
[2020-10-11] MEDS: CHOLECALCIFEROL 1,000 UNITS TABLET 5000 UNITS PO (08:36)
[2020-10-11] MEDS: LACOSAMIDE (*CRX) 100 MG TABLET PO ×2 (08:41→21:08)
--- NOTE | 2020-10-11 10:25 | WPDNEURORHBP ---
Subjective Date/time seen: 10/11/20 10:25 85 years old with right-sided subdural hematoma but no surgical intervention resulting in brain dysfunction, most recent lab on January 11, 2029 with WBC 7.2 hemoglobin 10.3 and a platelet count of 189, sodium dropping down to 133 creatinine 1.50 with BUN 55 and triglycerides of 192 with cholesterol 173 LDL 107 HDL 39, remains afebrile with temp of 36.6? pulse 65 respiration 18 pulse ox 99% on room air blood pressure 153/79 Review of Systems Review of Systems: All systems reviewed & are unremarkable except as noted in HPI and below Functional Status Ambulation Ability Ability to Ambulate 10 Feet: Contact Guard Ability to Ambulate 50 Feet With 2 Turns: Minimum Assistance X 1 Ambulation Assistive Devices: Walker, Wheeled Exam Const: General: cooperative, comfortable, no acute distress and well developed Nutritional Appearance: average body habitus Limitations: physical limitations HENMT: Ears: hearing grossly normal bilaterally General nose exam: Normal external nose present and No nasal discharge present Face and sinus: normal facial exam Mouth: Yes Normal oral and palatal mucosa present Eyes: General: appearance normal, both eyes and all related structures Alignment and Position: alignment normal Eyelids: eyelids normal Sclera: sclerae normal Pupils: Equal, round and reactive pupils present EOM: EOMs intact bilaterally Neck: Neck: no lymphadenopathy Carotids: normal carotid upstroke Resp: Effort & Inspection: normal respiratory effort and able to speak in complete sentences Auscultation: clear to auscultation bilaterally Cardio: Jugular venous distension: no JVD Palpation: normal PMI Rate: regular rate Rhythm: regular rhythm GI: Auscultation: normal bowel sounds Neuro: General: oriented to person and oriented to place Cranial nerves: Yes CN's II-XII intact bilaterally Cognition (Neuro): normal cognition Speech: normal speech Gait exam (Neuro): Assisted gait required Motor exam (neuro): 5/5 motor strength present throughout ( generally decreased strength) Sensory Exam: normal sensation Plantar Reflex Responses: downgoing: bilateral Psych: Appearance: grossly normal Speech and movement: Normal speech and movement present Affect: normal affect Attitude: cooperative Thought process: Normal thought process present Thought content: Yes Normal thought content present Insight: Good insight present (Psych) Judgement: Good judgement present (Psych) Objective Data Vital Signs Vital Signs: Vital Signs - 24 hr 10/10/20 14:00 10/10/20 20:00 10/10/20 22:00 Temperature 36.8 C 36.8 C Pulse Rate 77 77 64 Respiratory Rate 21 H 21 H 18 Blood Pressure 131/68 158/75 H Pulse Oximetry 95 95 99 10/11/20 06:00 10/11/20 08:33 Temperature 36.6 C Pulse Rate 65 65 Respiratory Rate 18 Blood Pressure 153/79 H Pulse Oximetry 99 Intake/Output Intake/Output: Intake & Output 10/08/20 10/09/20 10/10/20 10/11/20 23:59 23:59 23:59 23:59 Intake Total 820 1140 550 Balance 820 1140 550 Meds/Results Medications: Active Medications Generic Name Dose Route Start Last Admin Trade Name Samiq PRN Reason Stop Dose Admin Acetaminophen 650 mg 10/03/20 15:53 Acetaminophen 325 Mg Tablet PO Q4H PRN Pain Bisacodyl 10 mg 10/03/20 15:53 Bisacodyl 10 Mg Suppository RECTAL DAILY PRN Constipation Dexamethasone 4 mg 10/05/20 18:00 10/11/20 05:42 Dexamethasone 4 Mg Tablet PO 4 mg Q6HR ANTONIO Administration Docusate Sodium 100 mg 10/03/20 21:00 10/11/20 08:35 Docusate Sodium 100 Mg Capsule PO 100 mg Q12HR ANTONIO Administration Ezetimibe 10 mg 10/04/20 09:00 10/11/20 08:33 Ezetimibe 10 Mg Tablet PO 10 mg DAILY ANTONIO Administration Heparin Sodium (Porcine) 5,000 units 10/03/20 21:00 10/11/20 08:32 Heparin Sodium 5,000 Units/Ml Vial SUB-Q 5,000 units Q12HR ANTONIO Administration Isosorbide Mononitrate 60 mg 10/04/20 09:0
--- NOTE | 2020-10-11 12:07 | PCNFU ---
Nutrition Follow-Up Complete: Inadequate energy needs related to poor appetite as evidenced by patient refusing to eat at meals. Goal: Patient to consume 75% of meals/supplements or greater Patient is meeting her goal. No new goal at this time. Pt current nutrition is regular diet with level 6 soft and bite sized with level 2 liquids. Also receiving Ensure Enlive TID with meals. Last recorded weight is 71.8 kg. Recommend reweighing patient. Bowel Motility: Last documented BM on 10/08/20. Patient receiving Colace and Senna. Labs Reviewed: Hgb 10.3, Hct 30.3, Na 133, GFR 33, BUN 55, Cr 1.5, Glu 120 Meds Noted: zetia, protonix, toprol xl, keppra tablet, vimpat, imdur, colace capsule Additional Notes: Followed up with patient. Patient reported having a good appetite and loving the Ensure Enlive providing an additional 350 calories and 20 grams of protein. Will monitor, weight, labs, medications, and oral intake every 5 days.
--- NOTE | 2020-10-11 13:12 | PCNSR ---
On 10/11/20, the student, Violette Ramos, provided care and completed [facility] documentation on this patient. I have reviewed the student's documentation and agree with the findings.
[2020-10-11 14:00] VITALS: BP 119/58; PULSE 69; RESP 20; TEMP 36.4; O2SAT 95
[2020-10-11] MEDS: MELATONIN 3 MG TABLET PO (21:10)
[2020-10-11 22:00] VITALS: BP 147/78; PULSE 70; RESP 18; TEMP 36.2; O2SAT 95
[2020-10-12] MEDS: DEXAMETHASONE 4 MG TABLET PO ×3 (05:17→17:22)
[2020-10-12 05:54] VITALS: BP 139/83; PULSE 81; RESP 18; TEMP 36.4; O2SAT 97
[2020-10-12 08:45] VITALS: PULSE 81
[2020-10-12] MEDS: NIFEdipine 30 MG TAB.ER.24 PO (08:45)
[2020-10-12] MEDS: LACOSAMIDE (*CRX) 100 MG TABLET PO ×2 (08:45→20:01)
[2020-10-12] MEDS: levETIRAcetam 500 MG TABLET PO ×2 (08:45→20:01)
[2020-10-12] MEDS: PANTOPRAZOLE 40 MG TABLET PO (08:45)
[2020-10-12] MEDS: EZETIMIBE 10 MG TABLET PO (08:45)
[2020-10-12] MEDS: DOCUSATE SODIUM 100 MG CAPSULE PO ×2 (08:45→20:01)
[2020-10-12] MEDS: METOPROLOL SUCCINATE EXT REL 100 MG TABCR PO (08:45)
[2020-10-12] MEDS: HEPARIN SODIUM 5,000 UNITS/ML VIAL 5000 UNITS SUB-Q ×2 (08:46→20:01)
[2020-10-12] MEDS: CHOLECALCIFEROL 1,000 UNITS TABLET 5000 UNITS PO (08:46)
[2020-10-12] MEDS: ISOSORBIDE MONONITRATE 60 MG TAB.ER.24H PO (08:46)
[2020-10-12] MEDS: SENNOSIDES 8.6 MG TABLET PO ×2 (08:57→20:01)
[2020-10-12 14:56] VITALS: BP 140/68; PULSE 77; RESP 20; TEMP 36.1; O2SAT 98
[2020-10-12] MEDS: MELATONIN 3 MG TABLET PO (20:01)
[2020-10-12 22:00] VITALS: BP 138/62; PULSE 80; RESP 20; TEMP 36.1; O2SAT 99
[2020-10-13 06:00] VITALS: BP 156/84; PULSE 69; RESP 20; TEMP 36.4
[2020-10-13] MEDS: LACOSAMIDE (*CRX) 100 MG TABLET PO ×2 (08:27→20:01)
[2020-10-13] MEDS: HEPARIN SODIUM 5,000 UNITS/ML VIAL 5000 UNITS SUB-Q ×2 (08:29→20:00)
[2020-10-13] MEDS: DOCUSATE SODIUM 100 MG CAPSULE PO ×2 (08:30→20:01)
[2020-10-13] MEDS: levETIRAcetam 500 MG TABLET PO ×2 (08:30→20:01)
[2020-10-13] MEDS: ISOSORBIDE MONONITRATE 60 MG TAB.ER.24H PO (08:30)
[2020-10-13] MEDS: CHOLECALCIFEROL 1,000 UNITS TABLET 5000 UNITS PO (08:30)
[2020-10-13] MEDS: EZETIMIBE 10 MG TABLET PO (08:30)
[2020-10-13 08:31] VITALS: PULSE 69
[2020-10-13] MEDS: METOPROLOL SUCCINATE EXT REL 100 MG TABCR PO (08:31)
[2020-10-13] MEDS: NIFEdipine 30 MG TAB.ER.24 PO (08:31)
[2020-10-13] MEDS: PANTOPRAZOLE 40 MG TABLET PO (08:31)
[2020-10-13] MEDS: SENNOSIDES 8.6 MG TABLET PO ×2 (08:32→20:01)
[2020-10-13 14:00] VITALS: BP 120/59; PULSE 69; RESP 18; TEMP 36.9; O2SAT 96
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
[2020-10-13 20:00] VITALS: PULSE 69; RESP 18; O2SAT 96
[2020-10-13] MEDS: MELATONIN 3 MG TABLET PO (20:01)
[2020-10-13 21:51] VITALS: BP 141/75; PULSE 65; RESP 18; TEMP 36.3; O2SAT 96
[2020-10-14 06:00] VITALS: BP 150/74; PULSE 70; RESP 20; TEMP 36.1; O2SAT 99
[2020-10-14 08:58] VITALS: PULSE 70
[2020-10-14] MEDS: LACOSAMIDE (*CRX) 100 MG TABLET PO ×2 (08:58→20:06)
[2020-10-14] MEDS: CHOLECALCIFEROL 1,000 UNITS TABLET 5000 UNITS PO (08:58)
[2020-10-14] MEDS: ISOSORBIDE MONONITRATE 60 MG TAB.ER.24H PO (08:58)
[2020-10-14] MEDS: DOCUSATE SODIUM 100 MG CAPSULE PO ×2 (08:58→20:06)
[2020-10-14] MEDS: METOPROLOL SUCCINATE EXT REL 100 MG TABCR PO (08:58)
[2020-10-14] MEDS: SENNOSIDES 8.6 MG TABLET PO ×2 (08:58→20:06)
[2020-10-14] MEDS: PANTOPRAZOLE 40 MG TABLET PO (08:59)
[2020-10-14] MEDS: NIFEdipine 30 MG TAB.ER.24 PO (08:59)
[2020-10-14] MEDS: levETIRAcetam 500 MG TABLET PO ×2 (08:59→20:06)
[2020-10-14] MEDS: HEPARIN SODIUM 5,000 UNITS/ML VIAL 5000 UNITS SUB-Q ×2 (08:59→20:06)
[2020-10-14] MEDS: EZETIMIBE 10 MG TABLET PO (08:59)
--- NOTE | 2020-10-14 10:33 | WPDNEURORHBP ---
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 pulse 70 respirations 20 pulse ox 99 on room air and blood pressure 150/74, this morning she is awake alert following the instructions very well sitting in the chair. Review of Systems Review of Systems: All systems reviewed & are unremarkable except as noted in HPI and below Functional Status Ambulation Ability Ability to Ambulate 10 Feet: Contact Guard Ability to Ambulate 50 Feet With 2 Turns: Contact Guard Ambulation Assistive Devices: Walker, Wheeled Exam Const: General: cooperative and no acute distress Nutritional Appearance: average body habitus HENMT: Head: normocephalic Ears: hearing grossly normal bilaterally General nose exam: Normal external nose present and No nasal discharge present Eyes: General: appearance normal, both eyes and all related structures Neck: Neck: full ROM Resp: Effort & Inspection: normal respiratory effort Auscultation: clear to auscultation bilaterally Cardio: Rate: regular rate Rhythm: regular rhythm GI: Auscultation: normal bowel sounds Skin: General skin exam: no rashes or lesions noted Neuro: General: oriented to person and oriented to place Cranial nerves: Yes CN's II-XII intact bilaterally Cognition (Neuro): normal cognition ( Some delay in the speech with confusion) Motor exam (neuro): Abnormal motor strength present ( generally decreased 4/5) Deep tendon reflexes (DTR's): Right triceps reflex intensity grade: 1+, Left triceps reflex intensity grade: 1+, Rt Biceps (C5, C6): 1+, Left biceps reflex intensity grade: 1+, Right brachioradialis reflex intensity grade: 1+, Left brachioradialis reflex intensity grade: 1+, Right patellar reflex intensity grade: 1+ and Left patellar reflex intensity grade: 1+ Plantar Reflex Responses: downgoing: right and equivocal: left Coordination: [id number] test normal Psych: Mental Status: other ( intermittent confusion) Speech and movement: Slowed speech present (Psych) Affect: Animated affect present Attitude: cooperative Thought process: Impoverished thought process present Thought content: Yes Normal thought content present Insight: Fair insight present (Psych) Judgement: Fair judgement present (Psych) Objective Data Vital Signs Vital Signs: Vital Signs - 24 hr 10/13/20 14:00 10/13/20 20:00 10/13/20 21:51 Temperature 36.9 C 36.3 C L Pulse Rate 69 69 65 Respiratory Rate 18 18 18 Blood Pressure 120/59 L 141/75 H Pulse Oximetry 96 96 96 10/14/20 06:00 10/14/20 08:58 Temperature 36.1 C L Pulse Rate 70 70 Respiratory Rate 20 Blood Pressure 150/74 H Pulse Oximetry 99 Intake/Output Intake/Output: Intake & Output 10/11/20 10/12/20 10/13/20 10/14/20 23:59 23:59 23:59 23:59 Intake Total 380 540 Balance 380 540 Meds/Results Medications: Active Medications Generic Name Dose Route Start Last Admin Trade Name Freq PRN Reason Stop Dose Admin Acetaminophen 650 mg 10/03/20 15:53 Acetaminophen 325 Mg Tablet PO Q4H PRN Pain Bisacodyl 10 mg 10/03/20 15:53 Bisacodyl 10 Mg Suppository RECTAL DAILY PRN Constipation Docusate Sodium 100 mg 10/03/20 21:00 10/14/20 08:58 Docusate Sodium 100 Mg Ca
[2020-10-14] MEDS: DEXTROSE 5%/0.9% SOD CHL 1,000 ML 60 ML IV CONT (13:15)
[2020-10-14 14:00] VITALS: BP 106/63; PULSE 65; RESP 16; TEMP 36.3; O2SAT 95
[2020-10-14 20:00] VITALS: PULSE 65; RESP 16; O2SAT 95
[2020-10-14] MEDS: MELATONIN 3 MG TABLET PO (20:06)
[2020-10-14 22:00] VITALS: BP 125/60; PULSE 66; RESP 20; TEMP 37; O2SAT 95
[2020-10-15 05:47] VITALS: BP 148/82; PULSE 71; RESP 16; TEMP 36.4; O2SAT 97
[2020-10-15 08:00] VITALS: PULSE 71; RESP 16; O2SAT 97
[2020-10-15 09:03] VITALS: PULSE 71
[2020-10-15] MEDS: METOPROLOL SUCCINATE EXT REL 100 MG TABCR PO (09:03)
[2020-10-15] MEDS: NIFEdipine 30 MG TAB.ER.24 PO (09:04)
[2020-10-15] MEDS: CHOLECALCIFEROL 1,000 UNITS TABLET 5000 UNITS PO (09:05)
[2020-10-15] MEDS: ISOSORBIDE MONONITRATE 60 MG TAB.ER.24H PO (09:08)
[2020-10-15] MEDS: DOCUSATE SODIUM 100 MG CAPSULE PO ×2 (09:08→20:01)
[2020-10-15] MEDS: levETIRAcetam 500 MG TABLET PO ×2 (09:08→20:03)
[2020-10-15] MEDS: PANTOPRAZOLE 40 MG TABLET PO (09:08)
[2020-10-15] MEDS: EZETIMIBE 10 MG TABLET PO (09:09)
[2020-10-15] MEDS: HEPARIN SODIUM 5,000 UNITS/ML VIAL 5000 UNITS SUB-Q ×2 (09:10→20:07)
[2020-10-15] MEDS: SENNOSIDES 8.6 MG TABLET PO ×2 (09:10→20:03)
[2020-10-15] MEDS: LACOSAMIDE (*CRX) 100 MG TABLET PO ×2 (09:13→20:02)
--- NOTE | 2020-10-15 10:23 | WPDNEUROPN ---
Progress Note: A&P Assessment and Plan (1) Hypertension: Code(s): I10 - Essential (primary) hypertension Status: Acute (2) Swallowing difficulty: Code(s): R13.10 - Dysphagia, unspecified Status: Acute (3) Seizure: Code(s): R56.9 - Unspecified convulsions Status: Acute (4) Chronic kidney disease: Code(s): N18.9 - Chronic kidney disease, unspecified Status: Acute (5) Traumatic subdural hematoma: Code(s): S06.5X9A - Traumatic subdural hemorrhage with loss of consciousness of unspecified duration, initial encounter Status: Acute (6) Brain dysfunction: Code(s): G93.89 - Other specified disorders of brain Status: Acute Additional Plan is stable will be discharged on October 25, 2020 will require 24 hours how supervision family has been advised in the family meeting Review of Systems Review of Systems: All systems reviewed & are unremarkable except as noted in HPI and below Exam Const: General: cooperative, comfortable and no acute distress Nutritional Appearance: average body habitus Orientation/consciousness: oriented to person and oriented to place Limitations: behavioral limitations ( intermittently confused) and language barrier ( slow in responses at times) HENMT: Head: normocephalic Ears: hearing grossly normal bilaterally General nose exam: Normal external nose present and No nasal discharge present Face and sinus: normal facial exam Eyes: General: appearance normal, both eyes and all related structures Neck: Neck: full ROM Resp: Effort & Inspection: normal respiratory effort Auscultation: clear to auscultation bilaterally Cardio: Rate: regular rate Rhythm: regular rhythm GI: Auscultation: normal bowel sounds Skin: General skin exam: no rashes or lesions noted Neuro: General: oriented to person and moves all extremities Cranial nerves: Yes CN's II-XII intact bilaterally Cognition (Neuro): abnormal cognition Speech: normal speech and Abnormal speech present Gait exam (Neuro): Assisted gait required Motor exam (neuro): Abnormal motor strength present Psych: Appearance: grossly normal Mental Status: other Speech and movement: Clear speech present and Slowed speech present (Psych) Affect: Animated affect present Attitude: cooperative Thought process: Loose association thought process present Thought content: Yes Normal thought content present Insight: Fair insight present (Psych) Judgement: Fair judgement present (Psych) Objective Data Vital Signs Vital Signs: Vital Signs - 24 hr 10/14/20 14:00 10/14/20 20:00 10/14/20 22:00 Temperature 36.3 C L 37.0 C Pulse Rate 65 65 66 Respiratory Rate 16 16 20 Blood Pressure 106/63 125/60 Pulse Oximetry 95 95 95 10/15/20 05:47 10/15/20 09:03 Temperature 36.4 C L Pulse Rate 71 71 Respiratory Rate 16 Blood Pressure 148/82 H Pulse Oximetry 97 Intake/Output Intake/Output: Intake & Output 10/12/20 10/13/20 10/14/20 10/15/20 23:59 23:59 23:59 23:59 Intake Total 380 540 340 Balance 380 540 340 Meds/Results Medications: Active Medications Generic Name Dose Route Start Last Admin Trade Name Samiq PRN Reason Stop Dose Admin Acetaminophen 650 mg 10/03/20 15:53 Acetaminophen 325 Mg Tablet PO Q4H PRN Pain Bisacodyl 10 mg 10/03/20 15:53 Bisacodyl 10 Mg Suppository RECTAL DAILY PRN Constipation Docusate Sodium 100 mg 10/03/20 21:00 10/15/20 09:08 Docusate Sodium 100 Mg Capsule PO 100 mg Q12HR ANTONIO Administration Ezetimibe 10 mg 10/04/20 09:00 10/15/20 09:09 Ezetimibe 10 Mg Tablet PO 10 mg DAILY ANTONIO Administration Heparin Sodium (Porcine) 5,000 units 10/03/20 21:00 10/15/20 09:10 Heparin Sodium 5,000 Units/Ml Vial SUB-Q 5,000 units Q12HR ANTONIO Administration Isosorbide Mononitrate 60 mg 10/04/20 09:00 10/15/20 09:08 Isosorbide Mononitrate 60 Mg Tab.Er.24h PO 60 mg DAILY ANTONIO Admin
[2020-10-15 12:19] LABS: Anion Gap 7 mmol/L (8-16); Blood Urea Nitrogen 41 mg/dL (7-17); Calcium 8.9 mg/dL (8.4-10.2); Carbon Dioxide 26 mmol/L (22-30); Chloride 102 mmol/L (98-107); Estimated CRCL calculation 24 ml/min; Estimated Glomerular Filt Rate 36; Glucose 166 mg/dL (65-105); Potassium 4.6 mmol/L (3.4-5.0); Sodium 135 mmol/L (137-145)
--- NOTE | 2020-10-15 12:47 | PC.NURSE ---
chemistry drawn and results reported to Dr. Leblanc, no new orders except to continue encouraging fluid intake. Patient remains very drowsy this afternoon, she has no c/o except that she is 'tired'
[2020-10-15 13:35] VITALS: BMI 11.0
[2020-10-15 14:28] VITALS: BP 97/56; PULSE 74; RESP 20; TEMP 36.2; O2SAT 95
[2020-10-15 14:56] VITALS: BP 100/61
[2020-10-15] MEDS: MELATONIN 3 MG TABLET PO (20:03)
[2020-10-15 22:00] VITALS: BP 133/59; PULSE 80; RESP 18; TEMP 36.5; O2SAT 94
[2020-10-16 05:50] VITALS: BP 120/69; PULSE 68; RESP 18; TEMP 35.8; O2SAT 95
[2020-10-16] MEDS: SENNOSIDES 8.6 MG TABLET PO ×2 (08:34→21:06)
[2020-10-16] MEDS: EZETIMIBE 10 MG TABLET PO (08:34)
[2020-10-16] MEDS: ISOSORBIDE MONONITRATE 60 MG TAB.ER.24H PO (08:34)
[2020-10-16] MEDS: levETIRAcetam 500 MG TABLET PO ×2 (08:34→21:06)
[2020-10-16] MEDS: DOCUSATE SODIUM 100 MG CAPSULE PO ×2 (08:34→21:06)
[2020-10-16] MEDS: CHOLECALCIFEROL 1,000 UNITS TABLET 5000 UNITS PO (08:34)
[2020-10-16] MEDS: PANTOPRAZOLE 40 MG TABLET PO (08:34)
[2020-10-16 08:35] VITALS: PULSE 68
[2020-10-16] MEDS: METOPROLOL SUCCINATE EXT REL 100 MG TABCR PO (08:35)
[2020-10-16] MEDS: NIFEdipine 30 MG TAB.ER.24 PO (08:35)
[2020-10-16] MEDS: LACOSAMIDE (*CRX) 100 MG TABLET PO ×2 (08:37→21:06)
--- NOTE | 2020-10-16 11:16 | WPDNEURORHBP ---
Subjective Date/time seen: 10/16/20 11:16 status post right-sided subdural hematoma with intermittent confusion in spite of 7 days observation here could very well be related to underlying ongoing dementia complicated by the injury and subdural hematoma she remains stable with temp of 35.8? pulse 68 respiration 18 and a blood pressure of 120/69 on room air Review of Systems Review of Systems: All systems reviewed & are unremarkable except as noted in HPI and below Functional Status Ambulation Ability Ability to Ambulate 10 Feet: Contact Guard Ability to Ambulate 50 Feet With 2 Turns: Contact Guard Ambulation Assistive Devices: Parallel Bars Exam Const: General: cooperative, comfortable, alert and awake Nutritional Appearance: average body habitus Orientation/consciousness: oriented to person and oriented to place Limitations: behavioral limitations HENMT: Head: normocephalic Ears: hearing grossly normal bilaterally General nose exam: Normal external nose present and No nasal discharge present Face and sinus: normal facial exam Mouth: Yes Normal oral and palatal mucosa present Eyes: General: appearance normal, both eyes and all related structures Neck: Neck: full ROM Resp: Effort & Inspection: normal respiratory effort and able to speak in complete sentences Auscultation: clear to auscultation bilaterally Cardio: Rate: regular rate Rhythm: regular rhythm GI: Auscultation: normal bowel sounds Neuro: General: oriented to person Cranial nerves: Yes CN's II-XII intact bilaterally, Yes Equal, round and reactive pupils present and Yes Nystagmus not present Cognition (Neuro): normal cognition Gait exam (Neuro): Unable to assess gait Motor exam (neuro): Pronator motor function not present Sensory Exam: Sensory deficit (Neuro) Psych: Speech and movement: Slowed speech present (Psych) Affect: Animated affect present Attitude: Guarded attititude/behavior present Thought process: Circumstantial thought process present Insight: Limited insight present (Psych) Judgement: Limited judgement present (Psych) Objective Data Vital Signs Vital Signs: Vital Signs - 24 hr 10/15/20 14:28 10/15/20 14:56 10/15/20 22:00 Temperature 36.2 C L 36.5 C Pulse Rate 74 80 Respiratory Rate 20 18 Blood Pressure 97/56 L 100/61 133/59 L Pulse Oximetry 95 94 10/16/20 05:50 10/16/20 08:35 Temperature 35.8 C L Pulse Rate 68 68 Respiratory Rate 18 Blood Pressure 120/69 Pulse Oximetry 95 Intake/Output Intake/Output: Intake & Output 10/13/20 10/14/20 10/15/20 10/16/20 23:59 23:59 23:59 23:59 Intake Total 540 340 460 50 Balance 540 340 460 50 Meds/Results Medications: Active Medications Generic Name Dose Route Start Last Admin Trade Name Samiq PRN Reason Stop Dose Admin Acetaminophen 650 mg 10/03/20 15:53 Acetaminophen 325 Mg Tablet PO Q4H PRN Pain Bisacodyl 10 mg 10/03/20 15:53 Bisacodyl 10 Mg Suppository RECTAL DAILY PRN Constipation Docusate Sodium 100 mg 10/03/20 21:00 10/16/20 08:34 Docusate Sodium 100 Mg Capsule PO 100 mg Q12HR ANTONIO Administration Ezetimibe 10 mg 10/04/20 09:00 10/16/20 08:34 Ezetimibe 10 Mg Tablet PO 10 mg DAILY ANTONIO Administration Heparin Sodium (Porcine) 5,000 units 10/03/20 21:00 10/15/20 20:07 Heparin Sodium 5,000 Units/Ml Vial SUB-Q 5,000 units Q12HR ANTONIO Administration Isosorbide Mononitrate 60 mg 10/04/20 09:00 10/16/20 08:34 Isosorbide Mononitrate 60 Mg Tab.Er.24h PO 60 mg DAILY ANTONIO Administration Lacosamide 100 mg 10/03/20 21:00 10/16/20 08:37 Lacosamide (*Crx) 100 Mg Tablet PO 100 mg Q12HR ANTONIO Administration Levetiracetam 500 mg 10/03/20 21:00 10/16/20 08:34 Levetiracetam 500 Mg Tablet PO 500 mg Q12HR ANTONIO Administration Melatonin 3 mg 10/03/20 21:00 10/15/20 20:03 Melatonin 3 Mg Tablet PO 3 mg HS ANTONIO Administration Metoprolol Succinate 100 mg 10/04/20 09:00 02
--- NOTE | 2020-10-16 11:19 | PCDIET ---
Nutrition Follow-Up Complete: Nutrition Diagnosis: Inadequate energy needs related to poor appetite as evidenced by patient refusing to eat at meals. Nutrition Goal: Patient to consume 75% of meals/supplements or greater Goal met. Patient consumed average of only 60% of meals since 10/12/20 but continues on thickened Ensure Enlive TID. Diet is soft and bite size with level 2 liquids. Last recorded weight is 71.8 kg. Recommend obtaining new weight. Bowel Motility: +BM today. Labs Reviewed: Glu (166), BUN (41), Cr (1.4), Na (135) Meds Noted: Colace, Zetia, Imdur, Toprol, Nifedipine, Protonix, Senna, Vitamin D Additional Notes: No documented skin breakdown. Will continue to monitor with same goal. Nutrition Monitoring and Evaluation: Follow up in 5 days.
[2020-10-16 14:00] VITALS: BP 96/59; PULSE 73; RESP 16; TEMP 36.8; O2SAT 100
[2020-10-16 16:34] VITALS: BP 107/50
[2020-10-16 20:15] VITALS: BP 124/61; PULSE 69; RESP 16; TEMP 36.3; O2SAT 93
[2020-10-16] MEDS: MELATONIN 3 MG TABLET PO (21:06)
[2020-10-16] MEDS: HEPARIN SODIUM 5,000 UNITS/ML VIAL 5000 UNITS SUB-Q (21:12)
[2020-10-17 04:55] VITALS: BP 137/84; PULSE 79; RESP 20; TEMP 36.5; O2SAT 92
[2020-10-17] MEDS: CHOLECALCIFEROL 1,000 UNITS TABLET 5000 UNITS PO (10:39)
[2020-10-17] MEDS: ISOSORBIDE MONONITRATE 60 MG TAB.ER.24H PO (10:40)
[2020-10-17] MEDS: EZETIMIBE 10 MG TABLET PO (10:40)
[2020-10-17] MEDS: LACOSAMIDE (*CRX) 100 MG TABLET PO ×2 (10:40→21:04)
[2020-10-17] MEDS: levETIRAcetam 500 MG TABLET PO ×2 (10:40→21:04)
[2020-10-17] MEDS: HEPARIN SODIUM 5,000 UNITS/ML VIAL 5000 UNITS SUB-Q ×2 (10:40→21:10)
[2020-10-17] MEDS: DOCUSATE SODIUM 100 MG CAPSULE PO ×2 (10:40→21:04)
[2020-10-17 10:41] VITALS: PULSE 79
[2020-10-17] MEDS: NIFEdipine 30 MG TAB.ER.24 PO (10:41)
[2020-10-17] MEDS: METOPROLOL SUCCINATE EXT REL 100 MG TABCR PO (10:41)
[2020-10-17] MEDS: PANTOPRAZOLE 40 MG TABLET PO (10:41)
[2020-10-17] MEDS: SENNOSIDES 8.6 MG TABLET PO ×2 (10:41→21:04)
--- NOTE | 2020-10-17 11:47 | WPDNEURORHBP ---
Subjective Date/time seen: 10/17/20 11:47 status post right-sided subdural hematoma with no surgical intervention and ongoing course of intermittent confusion raising the possibility of underlying dementia remains involved in the physical therapy and occupational therapy. Present she is afebrile with pulse 79 respirations 20 blood pressure 137/84 and pulse ox 92% on room air. Electrolytes on were with sodium 135 BUN coming down to 41 creatinine 1.40 estimated GFR only 36 Review of Systems Review of Systems: All systems reviewed & are unremarkable except as noted in HPI and below Functional Status Ambulation Ability Ability to Ambulate 10 Feet: Contact Guard Ability to Ambulate 50 Feet With 2 Turns: Contact Guard Ambulation Assistive Devices: Parallel Bars Exam Const: General: cooperative, comfortable and no acute distress Nutritional Appearance: average body habitus Orientation/consciousness: oriented to person Limitations: other limitations HENMT: Head: normocephalic Ears: hearing grossly normal bilaterally Face and sinus: normal facial exam Mouth: Yes Normal oral and palatal mucosa present Neck: Neck: full ROM Resp: Effort & Inspection: normal respiratory effort Auscultation: clear to auscultation bilaterally Cardio: Rate: regular rate Rhythm: regular rhythm GI: Auscultation: normal bowel sounds Skin: General skin exam: no rashes or lesions noted Neuro: General: oriented to person Cranial nerves: Yes CN's II-XII intact bilaterally, Yes Equal, round and reactive pupils present, Yes Nystagmus not present and Yes Midline tongue present Cognition (Neuro): abnormal cognition Speech: normal speech ( slowed responses) Motor exam (neuro): 5/5 motor strength present throughout ( generally decreased) Sensory Exam: Sensory deficit (Neuro) Psych: Appearance: grossly normal ( no significant change) Objective Data Vital Signs Vital Signs: Vital Signs - 24 hr 10/16/20 14:00 10/16/20 16:34 10/16/20 20:15 Temperature 36.8 C 36.3 C L Pulse Rate 73 69 Respiratory Rate 16 16 Blood Pressure 96/59 L 107/50 L 124/61 Pulse Oximetry 100 93 10/17/20 04:55 10/17/20 10:41 Temperature 36.5 C Pulse Rate 79 79 Respiratory Rate 20 Blood Pressure 137/84 Pulse Oximetry 92 Intake/Output Intake/Output: Intake & Output 10/14/20 10/15/20 10/16/20 10/17/20 23:59 23:59 23:59 23:59 Intake Total 340 460 170 240 Balance 340 460 170 240 Meds/Results Medications: Active Medications Generic Name Dose Route Start Last Admin Trade Name Ambrosio PRN Reason Stop Dose Admin Acetaminophen 650 mg 10/03/20 15:53 Acetaminophen 325 Mg Tablet PO Q4H PRN Pain Bisacodyl 10 mg 10/03/20 15:53 Bisacodyl 10 Mg Suppository RECTAL DAILY PRN Constipation Docusate Sodium 100 mg 10/03/20 21:00 10/17/20 10:40 Docusate Sodium 100 Mg Capsule PO 100 mg Q12HR ANTONIO Administration Ezetimibe 10 mg 10/04/20 09:00 10/17/20 10:40 Ezetimibe 10 Mg Tablet PO 10 mg DAILY ANTONIO Administration Heparin Sodium (Porcine) 5,000 units 10/03/20 21:00 10/17/20 10:40 Heparin Sodium 5,000 Units/Ml Vial SUB-Q 5,000 units Q12HR ANTONIO Administration Isosorbide Mononitrate 60 mg 10/04/20 09:00 10/17/20 10:40 Isosorbide Mononitrate 60 Mg Tab.Er.24h PO 60 mg DAILY ANTONIO Administration Lacosamide 100 mg 10/03/20 21:00 10/17/20 10:40 Lacosamide (*Crx) 100 Mg Tablet PO 100 mg Q12HR ANTONIO Administration Levetiracetam 500 mg 10/03/20 21:00 10/17/20 10:40 Levetiracetam 500 Mg Tablet PO 500 mg Q12HR ANTONIO Administration Melatonin 3 mg 10/03/20 21:00 10/16/20 21:06 Melatonin 3 Mg Tablet PO 3 mg HS ANTONIO Administration Metoprolol Succinate 100 mg 10/04/20 09:00 10/17/20 10:41 Metoprolol Succinate Ext Rel 100 Mg Tabcr PO 100 mg DAILY ANTONIO Administration Nifedipine 30 mg 10/04/20 09:00 10/17/20 10:41 Nifedipine 30 Mg Tab.Er.24 PO 30 mg D
[2020-10-17 14:00] VITALS: BP 139/75; PULSE 74; RESP 20; TEMP 36.8; O2SAT 100
[2020-10-17 20:47] VITALS: BP 119/56; PULSE 78; RESP 20; TEMP 36.9; O2SAT 94
[2020-10-17] MEDS: MELATONIN 3 MG TABLET PO (21:04)
[2020-10-18] VITALS (8 sets, daily range): BP systolic 107–142; BP diastolic 60–64; PULSE 75–79; RESP 18–20; TEMP 36.4–37.2; O2SAT 95–100
[2020-10-18] MEDS: ACETAMINOPHEN 325 MG TABLET 650 MG PO ×2 (02:59→08:42)
[2020-10-18 05:08] LABS: Anion Gap 0 mmol/L (8-16); Basophils Percent Auto 0.2 % (0.2-1.2); Blood Urea Nitrogen 32 mg/dL (7-17); Calcium 8.4 mg/dL (8.4-10.2); Carbon Dioxide 33 mmol/L (22-30); Chloride 104 mmol/L (98-107); Eosinophils Absolute Auto 0.2 K/mm3 (0-0.3); Eosinophils Percent Auto 1.9 % (0-4.4); Estimated CRCL calculation 22 ml/min; Estimated Glomerular Filt Rate 33; Glucose 86 mg/dL (65-105); Hematocrit 30.5 % (37.0-47.0); Immature Granulocyte Absolute 0.04 K/mm3 (0.00-0.031); Immature Granulocyte Percent A 0.5 % (0-0.5); Immature Platelet Fraction Pct 4.4 % (0.9-11.2); Lymphocytes Absolute Auto 1.65 K/mm3 (0.9-3.2); Lymphocytes Percent Auto 19.5 % (18.3-44.2); Mean Corpuscular HGB Conc 32.8 g/dl (32-36); Mean Corpuscular Hemoglobin 33.2 pg (26-34); Mean Corpuscular Volume 101.3 fl (80-100); Monocytes Absolute Auto 1.2 K/mm3 (0.1-0.6); Monocytes Percent Auto 14.3 % (2.6-8.5); Neutrophils Absolute Auto 5.4 K/mm3 (1.3-6.7); Neutrophils Percent Auto 63.6 % (45.5-73.1); Platelet Count Result 143 k/mm3 (150-375); Potassium 4.6 mmol/L (3.4-5.0); Red Blood Count 3.01 M/mm3 (4.2-5.4); Red Cell Distribution Width 12.7 % (11.5-14.5); Sodium 137 mmol/L (137-145); White Blood Count 8.5 K/mm3 (4.5-10.0)
[2020-10-18] MEDS: ISOSORBIDE MONONITRATE 60 MG TAB.ER.24H PO (08:42)
[2020-10-18] MEDS: CHOLECALCIFEROL 1,000 UNITS TABLET 5000 UNITS PO (08:42)
[2020-10-18] MEDS: levETIRAcetam 500 MG TABLET PO ×2 (08:42→20:57)
[2020-10-18] MEDS: DOCUSATE SODIUM 100 MG CAPSULE PO ×2 (08:42→20:57)
[2020-10-18] MEDS: PANTOPRAZOLE 40 MG TABLET PO (08:42)
[2020-10-18] MEDS: EZETIMIBE 10 MG TABLET PO (08:42)
[2020-10-18] MEDS: NIFEdipine 30 MG TAB.ER.24 PO (08:42)
[2020-10-18] MEDS: METOPROLOL SUCCINATE EXT REL 100 MG TABCR PO (08:42)
[2020-10-18] MEDS: SENNOSIDES 8.6 MG TABLET PO ×2 (08:44→20:58)
[2020-10-18] MEDS: LACOSAMIDE (*CRX) 100 MG TABLET PO ×2 (08:44→20:57)
--- NOTE | 2020-10-18 15:12 | WPDNEURORHBP ---
Subjective Date/time seen: 10/18/20 15:12 is status post right subdural hematoma with no surgical intervention and ongoing history of intermittent confusion raising the possibility of pre-existent dementia as well. Her lab shows WBC 8.5 hemoglobin 10.0 platelet count 143 gradually coming down BUN 32 definitely has come down remains afebrile with temp of 36.7? pulse 75 respiration 18 pulse ox 95% on room air and a blood pressure 107/60 Review of Systems Review of Systems: All systems reviewed & are unremarkable except as noted in HPI and below Functional Status Ambulation Ability Ability to Ambulate 10 Feet: Contact Guard Ability to Ambulate 50 Feet With 2 Turns: Contact Guard Ambulation Assistive Devices: Parallel Bars Exam Const: General: cooperative, comfortable and no acute distress Orientation/consciousness: oriented to person Limitations: other limitations ( memory) HENMT: Head: normocephalic General nose exam: Normal external nose present and No nasal discharge present Mouth: Yes Normal oral and palatal mucosa present Eyes: General: appearance normal, both eyes and all related structures Alignment and Position: alignment normal Periorbital: periorbital findings normal Eyelids: eyelids normal Conjunctivae: conjunctivae normal Sclera: sclerae normal Pupils: Equal, round and reactive pupils present EOM: EOMs intact bilaterally Resp: Effort & Inspection: normal respiratory effort Auscultation: clear to auscultation bilaterally Cardio: Rate: regular rate Rhythm: regular rhythm GI: Auscultation: normal bowel sounds Skin: General skin exam: no rashes or lesions noted Neuro: General: oriented to person and oriented to place Cranial nerves: Yes CN's II-XII intact bilaterally Cognition (Neuro): abnormal cognition ( limited) Speech: normal speech Motor exam (neuro): Abnormal motor strength present Psych: Appearance: well kempt Speech and movement: Normal speech and movement present Affect: Animated affect present Attitude: cooperative Thought process: Normal thought process present Thought content: Yes Normal thought content present Insight: Fair insight present (Psych) Objective Data Vital Signs Vital Signs: Vital Signs - 24 hr 10/17/20 20:47 10/18/20 02:59 10/18/20 03:58 Temperature 36.9 C 37.2 C 36.4 C Pulse Rate 78 Respiratory Rate 20 Blood Pressure 119/56 L Pulse Oximetry 94 10/18/20 05:15 10/18/20 08:42 10/18/20 14:00 Temperature 36.9 C 36.7 C Pulse Rate 79 79 75 Respiratory Rate 20 18 Blood Pressure 127/62 107/60 Pulse Oximetry 95 95 Intake/Output Intake/Output: Intake & Output 10/15/20 10/16/20 10/17/20 10/18/20 23:59 23:59 23:59 23:59 Intake Total 460 170 960 480 Balance 460 170 960 480 Meds/Results Medications: Active Medications Generic Name Dose Route Start Last Admin Trade Name Freq PRN Reason Stop Dose Admin Acetaminophen 650 mg 10/03/20 15:53 10/18/20 08:42 Acetaminophen 325 Mg Tablet PO 650 mg Q4H PRN Administration Pain Bisacodyl 10 mg 10/03/20 15:53 Bisacodyl 10 Mg Suppository RECTAL DAILY PRN Constipation Docusate Sodium 100 mg 10/03/20 21:00 10/18/20 08:42 Docusate Sodium 100 Mg Capsule PO 100 mg Q12HR ANTONIO Administration Ezetimibe 10 mg 10/04/20 09:00 10/18/20 08:42 Ezetimibe 10 Mg Tablet PO 10 mg DAILY ANTONIO Administration Heparin Sodium (Porcine) 5,000 units 10/03/20 21:00 10/18/20 08:43 Heparin Sodium 5,000 Units/Ml Vial SUB-Q Not Given Q12HR ANTONIO Isosorbide Mononitrate 60 mg 10/04/20 09:00 10/18/20 08:42 Isosorbide Mononitrate 60 Mg Tab.Er.24h PO 60 mg DAILY ANTONIO Administration Lacosamide 100 mg 10/03/20 21:00 10/18/20 08:44 Lacosamide (*Crx) 100 Mg Tablet PO 100 mg Q12HR ANTONIO Administration Levetiracetam 500 mg 10/03/20 21:00 10/18/20 08:42 Levetiracetam 500 Mg Tablet PO 500 mg Q12HR ANTONIO Administration Melatonin 3 mg 10/03/20 21:00 02
[2020-10-18] MEDS: HEPARIN SODIUM 5,000 UNITS/ML VIAL 5000 UNITS SUB-Q (20:57)
[2020-10-18] MEDS: MELATONIN 3 MG TABLET PO (20:58)
[2020-10-19 06:00] VITALS: BP 158/85; PULSE 66; RESP 18; TEMP 36.2; O2SAT 98
[2020-10-19 08:00] VITALS: PULSE 66; RESP 18; O2SAT 98
--- NOTE | 2020-10-19 08:54 | PCOTNOTE ---
Attempted therapy session with patient, but patient was resistant to therapy and would not initiate any self care tasks, including grooming, bathing and dressing and refused bed mobility and transferring to a wheelchair. Therapist set up patient with grooming supplies at bedside table, but patient would not initiate any tasks, even with maximum encouragement and explanation of benefits. Therapist explained benefits of therapy and encouraged patient to participate, but patient would only state she would perform a task if I want to. Patient declined all therapeutic activities this date.
[2020-10-19] MEDS: CHOLECALCIFEROL 1,000 UNITS TABLET 5000 UNITS PO (09:04)
[2020-10-19 09:05] VITALS: PULSE 66
[2020-10-19] MEDS: EZETIMIBE 10 MG TABLET PO (09:05)
[2020-10-19] MEDS: NIFEdipine 30 MG TAB.ER.24 PO (09:05)
[2020-10-19] MEDS: METOPROLOL SUCCINATE EXT REL 100 MG TABCR PO (09:05)
[2020-10-19] MEDS: ISOSORBIDE MONONITRATE 60 MG TAB.ER.24H PO (09:05)
[2020-10-19] MEDS: DOCUSATE SODIUM 100 MG CAPSULE PO ×2 (09:05→20:05)
[2020-10-19] MEDS: levETIRAcetam 500 MG TABLET PO ×2 (09:05→20:05)
[2020-10-19] MEDS: PANTOPRAZOLE 40 MG TABLET PO (09:05)
[2020-10-19] MEDS: HEPARIN SODIUM 5,000 UNITS/ML VIAL 5000 UNITS SUB-Q ×2 (09:05→20:06)
[2020-10-19] MEDS: SENNOSIDES 8.6 MG TABLET PO ×2 (09:06→20:05)
[2020-10-19] MEDS: LACOSAMIDE (*CRX) 100 MG TABLET PO ×2 (09:11→20:05)
[2020-10-19 10:07] VITALS: BMI 10.0
--- NOTE | 2020-10-19 11:00 | PCOTNOTE ---
Attempted therapy session again, but patient continued to decline and would not meaningfully engage with therapist or initiate any activity.
[2020-10-19 14:00] VITALS: BP 130/92; PULSE 87; RESP 20; TEMP 37.1; O2SAT 96
--- NOTE | 2020-10-19 14:15 | WPDNEURORHBP ---
Subjective Date/time seen: 10/19/20 14:15 this morning she is rather withdrawn does not want to be involved in any therapy and also not very communicative, temperature is 36.2? pulse 66 respiration 18 pulse ox 98% on the room air and the blood pressure is 158/85, the lab yesterday did not show any leukocytosis WBCs were 8.5 hemoglobin 10.0 and the platelet count of 143 electrolytes were not significant definitely improving Review of Systems Review of Systems: All systems reviewed & are unremarkable except as noted in HPI and below Functional Status Ambulation Ability Ability to Ambulate 10 Feet: Contact Guard Ability to Ambulate 50 Feet With 2 Turns: Contact Guard Ambulation Assistive Devices: Parallel Bars Exam Const: General: alert, awake and confusion Orientation/consciousness: oriented to person HENMT: Head: normal to inspection Ears: hearing grossly normal bilaterally General nose exam: Normal external nose present and No nasal discharge present Eyes: General: appearance normal, both eyes and all related structures Neck: Neck: full ROM Resp: Effort & Inspection: normal respiratory effort and able to speak in complete sentences Auscultation: clear to auscultation bilaterally Cardio: Jugular venous distension: no JVD Rate: regular rate Rhythm: regular rhythm GI: Auscultation: normal bowel sounds Skin: General skin exam: no rashes or lesions noted Neuro: General: oriented to person Cranial nerves: Yes CN's II-XII intact bilaterally Speech: normal speech Gait exam (Neuro): Unable to assess gait Motor exam (neuro): Abnormal motor strength present ( generally decreased) Sensory Exam: Sensory deficit (Neuro) Deep tendon reflexes (DTR's): Right triceps reflex intensity grade: 1+, Left triceps reflex intensity grade: 1+, Rt Biceps (C5, C6): 1+, Left biceps reflex intensity grade: 1+, Right brachioradialis reflex intensity grade: 1+, Left brachioradialis reflex intensity grade: 1+, Right patellar reflex intensity grade: 1+, Left patellar reflex intensity grade: 1+, Right ankle reflex intensity grade: 1+ and Left ankle reflex intensity grade: 1+ Plantar Reflex Responses: downgoing: bilateral Psych: Mental Status: other Speech and movement: Clear speech present Affect: Animated affect present Attitude: Belligerent attititude/behavior present Thought process: Illogical thought process present Insight: Poor insight present (Psych) Judgement: Poor judgement present (Psych) Objective Data Vital Signs Vital Signs: Vital Signs - 24 hr 10/18/20 20:00 10/18/20 22:00 10/19/20 06:00 Temperature 37.2 C 36.2 C L Pulse Rate 76 66 Respiratory Rate 18 18 Blood Pressure 142/64 H 158/85 H Pulse Oximetry 95 96 98 10/19/20 08:00 10/19/20 09:05 Temperature Pulse Rate 66 66 Respiratory Rate 18 Blood Pressure Pulse Oximetry 98 Intake/Output Intake/Output: Intake & Output 10/16/20 10/17/20 10/18/20 10/19/20 23:59 23:59 23:59 23:59 Intake Total 170 960 720 600 Balance 170 960 720 600 Meds/Results Medications: Active Medications Generic Name Dose Route Start Last Admin Trade Name Freq PRN Reason Stop Dose Admin Acetaminophen 650 mg 10/03/20 15:53 10/18/20 08:42 Acetaminophen 325 Mg Tablet PO 650 mg Q4H PRN Administration Pain Bisacodyl 10 mg 10/03/20 15:53 Bisacodyl 10 Mg Suppository RECTAL DAILY PRN Constipation Docusate Sodium 100 mg 10/03/20 21:00 10/19/20 09:05 Docusate Sodium 100 Mg Capsule PO 100 mg Q12HR ANTONIO Administration Ezetimibe 10 mg 10/04/20 09:00 10/19/20 09:05 Ezetimibe 10 Mg Tablet PO 10 mg DAILY ANTONIO Administration Heparin Sodium (Porcine) 5,000 units 10/03/20 21:00 10/19/20 09:05 Heparin Sodium 5,000 Units/Ml Vial SUB-Q 5,000 units Q12HR ANTONIO Administration Isosorbide Mononitrate 60 mg 10/04/20 09:00 10/19/20 09:05 Isosorbide Mononitrate 60 Mg Tab.Er.24h PO 60 mg DAILY ANTONIO Administration Lacosamide
[2020-10-19] MEDS: MELATONIN 3 MG TABLET PO (20:05)
[2020-10-19 20:30] VITALS: PULSE 87; RESP 20; O2SAT 96
[2020-10-19 22:00] VITALS: BP 122/86; PULSE 77; RESP 20; TEMP 36.5; O2SAT 95
[2020-10-20 06:00] VITALS: BP 128/68; PULSE 72; RESP 18; TEMP 36.7; O2SAT 95
[2020-10-20] MEDS: HEPARIN SODIUM 5,000 UNITS/ML VIAL 5000 UNITS SUB-Q ×2 (08:34→21:51)
[2020-10-20] MEDS: SENNOSIDES 8.6 MG TABLET PO ×2 (08:34→21:46)
[2020-10-20] MEDS: levETIRAcetam 500 MG TABLET PO ×2 (08:34→21:46)
[2020-10-20 08:35] VITALS: PULSE 72
[2020-10-20] MEDS: CHOLECALCIFEROL 1,000 UNITS TABLET 5000 UNITS PO (08:35)
[2020-10-20] MEDS: PANTOPRAZOLE 40 MG TABLET PO (08:35)
[2020-10-20] MEDS: METOPROLOL SUCCINATE EXT REL 100 MG TABCR PO (08:35)
[2020-10-20] MEDS: ISOSORBIDE MONONITRATE 60 MG TAB.ER.24H PO (08:35)
[2020-10-20] MEDS: NIFEdipine 30 MG TAB.ER.24 PO (08:35)
[2020-10-20] MEDS: DOCUSATE SODIUM 100 MG CAPSULE PO ×2 (08:35→21:46)
[2020-10-20] MEDS: EZETIMIBE 10 MG TABLET PO (08:36)
[2020-10-20] MEDS: LACOSAMIDE (*CRX) 100 MG TABLET PO ×2 (08:37→21:46)
[2020-10-20 14:00] VITALS: BP 121/69; PULSE 80; RESP 16; TEMP 36.8; O2SAT 99
[2020-10-20 20:51] VITALS: BP 136/79; PULSE 78; RESP 18; TEMP 35.9; O2SAT 96
[2020-10-20] MEDS: MELATONIN 3 MG TABLET PO (21:46)
[2020-10-21 05:37] VITALS: BP 145/81; PULSE 79; RESP 20; TEMP 36.4; O2SAT 96
[2020-10-21 08:00] VITALS: PULSE 79; RESP 20; O2SAT 96
[2020-10-21 09:01] VITALS: PULSE 79
[2020-10-21] MEDS: EZETIMIBE 10 MG TABLET PO (09:01)
[2020-10-21] MEDS: METOPROLOL SUCCINATE EXT REL 100 MG TABCR PO (09:01)
[2020-10-21] MEDS: NIFEdipine 30 MG TAB.ER.24 PO (09:01)
[2020-10-21] MEDS: CHOLECALCIFEROL 1,000 UNITS TABLET 5000 UNITS PO (09:02)
[2020-10-21] MEDS: PANTOPRAZOLE 40 MG TABLET PO (09:02)
[2020-10-21] MEDS: levETIRAcetam 500 MG TABLET PO ×2 (09:02→21:46)
[2020-10-21] MEDS: ISOSORBIDE MONONITRATE 60 MG TAB.ER.24H PO (09:02)
[2020-10-21] MEDS: DOCUSATE SODIUM 100 MG CAPSULE PO ×2 (09:03→21:19)
[2020-10-21] MEDS: SENNOSIDES 8.6 MG TABLET PO ×2 (09:03→21:19)
[2020-10-21] MEDS: HEPARIN SODIUM 5,000 UNITS/ML VIAL 5000 UNITS SUB-Q ×2 (09:03→21:46)
[2020-10-21] MEDS: LACOSAMIDE (*CRX) 100 MG TABLET PO ×2 (09:06→21:49)
[2020-10-21 09:33] VITALS: BMI 11.0
[2020-10-21 14:00] VITALS: BP 138/79; PULSE 92; RESP 18; TEMP 36.2; O2SAT 96
--- NOTE | 2020-10-21 14:31 | PCNFU ---
Nutrition Follow-Up Complete: Inadequate energy needs related to poor appetite as evidenced by patient refusing to eat at meals. Goal: Patient to consume 75% of meals/supplements or greater Patient is continually working towards her goal. No new goal at this time. Pt current nutrition is regular diet with level 6 soft and bite sized and level 2 mildly thick liquids. Last recorded weight is 71.8 kg. Recommend re-weighing patient. Bowel Motility: + BM 10/21 Labs Reviewed: Hgb 10, Hct 30.5, GFR 33, BUN 32, Cr 1.5 Meds Noted: Zetia, Protonix, Toprol xl, Keppra tablet, Vimpat, Imdur Colace Additional Notes: Spoke with nurse. Nurse reports that each day is different. Sometimes patient eats great and sometimes patient refuses meals. Will monitor, weight, labs, medications, and oral intake every 5 days.
--- NOTE | 2020-10-21 14:42 | PCNSR ---
On 10/21/20, the student, Violette Ramos, provided care and completed [facility] documentation on this patient. I have reviewed the student's documentation and agree with the findings.
--- NOTE | 2020-10-21 17:24 | WPDNEURORHBP ---
Subjective Date/time seen: 10/21/20 17:25 remains stable with a fluctuating mental status Damaris more so in the morning, afebrile with temp of 36.2? pulse 92 and respiration 18 pulse ox 96 on room air blood pressure 138/79 Review of Systems Review of Systems: All systems reviewed & are unremarkable except as noted in HPI and below Functional Status Ambulation Ability Ability to Ambulate 10 Feet: Contact Guard Ability to Ambulate 50 Feet With 2 Turns: Contact Guard Ambulation Assistive Devices: Parallel Bars Exam Const: General: cooperative, comfortable, no acute distress, alert, awake and confusion Nutritional Appearance: average body habitus Orientation/consciousness: oriented to person Limitations: language barrier and other limitations ( underlying ongoing dementia) HENMT: Head: normocephalic General nose exam: Normal external nose present and No nasal discharge present Eyes: General: appearance normal, both eyes and all related structures Periorbital: periorbital findings normal Eyelids: eyelids normal Conjunctivae: conjunctivae normal Sclera: sclerae normal Cornea: corneas normal Pupils: Equal, round and reactive pupils present EOM: EOMs intact bilaterally Neck: Neck: full ROM and no lymphadenopathy Resp: Effort & Inspection: normal respiratory effort Auscultation: clear to auscultation bilaterally Cardio: Rate: regular rate Rhythm: regular rhythm GI: Auscultation: normal bowel sounds Skin: General skin exam: no rashes or lesions noted Neuro: General: oriented to person, moves all extremities and confusion Cranial nerves: Yes CN's II-XII intact bilaterally, Yes Equal, round and reactive pupils present, Yes Nystagmus not present, Yes Midline tongue present, Yes Normal hearing present and Yes Ability to bilaterally elevate shoulders present Cognition (Neuro): abnormal cognition Speech: normal speech Motor exam (neuro): Abnormal motor strength present Sensory Exam: Sensory deficit (Neuro) Psych: Mental Status: other Affect: Labile affect present Attitude: cooperative Thought process: Circumstantial thought process present Thought content: Yes Normal thought content present Insight: Poor insight present (Psych) Judgement: Poor judgement present (Psych) Objective Data Vital Signs Vital Signs: Vital Signs - 24 hr 10/20/20 20:51 10/21/20 05:37 10/21/20 08:00 Temperature 35.9 C L 36.4 C Pulse Rate 78 79 79 Respiratory Rate 18 20 20 Blood Pressure 136/79 145/81 H Pulse Oximetry 96 96 96 10/21/20 09:01 10/21/20 14:00 Temperature 36.2 C L Pulse Rate 79 92 Respiratory Rate 18 Blood Pressure 138/79 Pulse Oximetry 96 Intake/Output Intake/Output: Intake & Output 10/18/20 10/19/20 10/20/20 10/21/20 23:59 23:59 23:59 23:59 Intake Total 720 840 420 360 Balance 720 840 420 360 Meds/Results Medications: Active Medications Generic Name Dose Route Start Last Admin Trade Name Freq PRN Reason Stop Dose Admin Acetaminophen 650 mg 10/03/20 15:53 10/18/20 08:42 Acetaminophen 325 Mg Tablet PO 650 mg Q4H PRN Administration Pain Bisacodyl 10 mg 10/03/20 15:53 Bisacodyl 10 Mg Suppository RECTAL DAILY PRN Constipation Docusate Sodium 100 mg 10/03/20 21:00 10/21/20 09:03 Docusate Sodium 100 Mg Capsule PO 100 mg Q12HR ANTONIO Administration Ezetimibe 10 mg 10/04/20 09:00 10/21/20 09:01 Ezetimibe 10 Mg Tablet PO 10 mg DAILY ANTONIO Administration Heparin Sodium (Porcine) 5,000 units 10/03/20 21:00 10/21/20 09:03 Heparin Sodium 5,000 Units/Ml Vial SUB-Q 5,000 units Q12HR ANTONIO Administration Isosorbide Mononitrate 60 mg 10/04/20 09:00 10/21/20 09:02 Isosorbide Mononitrate 60 Mg Tab.Er.24h PO 60 mg DAILY ANTONIO Administration Lacosamide 100 mg 10/03/20 21:00 10/21/20 09:06 Lacosamide (*Crx) 100 Mg Tablet PO 100 mg Q12HR ANTONIO Administration Levetiracetam 500 mg 10/03/20 21:00 10/21/20 09:02 Levetiracetam 500
[2020-10-21 20:00] VITALS: PULSE 84; RESP 18; O2SAT 92
[2020-10-21 20:15] VITALS: BP 113/67; PULSE 84; RESP 18; TEMP 36.5; O2SAT 92
[2020-10-21] MEDS: MELATONIN 3 MG TABLET PO (21:46)
[2020-10-22] VITALS (7 sets, daily range): BP systolic 86–144; BP diastolic 43–85; PULSE 75–98; RESP 18; TEMP 36.1–36.8; O2SAT 92–95
[2020-10-22] MEDS: ISOSORBIDE MONONITRATE 60 MG TAB.ER.24H PO (09:04)
[2020-10-22] MEDS: METOPROLOL SUCCINATE EXT REL 100 MG TABCR PO (09:04)
[2020-10-22] MEDS: levETIRAcetam 500 MG TABLET PO ×2 (09:04→21:37)
[2020-10-22] MEDS: PANTOPRAZOLE 40 MG TABLET PO (09:04)
[2020-10-22] MEDS: EZETIMIBE 10 MG TABLET PO (09:04)
[2020-10-22] MEDS: CHOLECALCIFEROL 1,000 UNITS TABLET 5000 UNITS PO (09:04)
[2020-10-22] MEDS: NIFEdipine 30 MG TAB.ER.24 PO (09:04)
[2020-10-22] MEDS: DOCUSATE SODIUM 100 MG CAPSULE PO ×2 (09:04→21:35)
[2020-10-22] MEDS: SENNOSIDES 8.6 MG TABLET PO ×2 (09:05→21:38)
[2020-10-22] MEDS: HEPARIN SODIUM 5,000 UNITS/ML VIAL 5000 UNITS SUB-Q ×2 (09:05→21:34)
[2020-10-22] MEDS: LACOSAMIDE (*CRX) 100 MG TABLET PO ×2 (09:06→21:36)
--- NOTE | 2020-10-22 10:47 | PCSTNOTE ---
The patient morning treatment was not able to be completed on 10/22/20 due to fatigue and low blood pressure following a Physical Therapy session. Will plan to continue treatment per plan of care this afternoon.
--- NOTE | 2020-10-22 11:15 | WPDNEURORHBP ---
Subjective Date/time seen: 10/22/20 11:15 continues to be involved in the physical therapy and occupational therapy but has periods of an on when she is somewhat reluctant and mental alertness is not there, discussed with the family as well all the pros and cons discussed Review of Systems Review of Systems: All systems reviewed & are unremarkable except as noted in HPI and below Functional Status Ambulation Ability Ability to Ambulate 10 Feet: Contact Guard Ability to Ambulate 50 Feet With 2 Turns: Contact Guard Ambulation Assistive Devices: Parallel Bars Exam Const: General: no acute distress Nutritional Appearance: average body habitus Limitations: behavioral limitations HENMT: Head: normocephalic Ears: hearing grossly normal bilaterally General nose exam: Normal external nose present and No nasal discharge present Face and sinus: normal facial exam Mouth: Yes Normal oral and palatal mucosa present Eyes: General: appearance normal, both eyes and all related structures Neck: Neck: full ROM Resp: Effort & Inspection: normal respiratory effort Auscultation: clear to auscultation bilaterally Cardio: Rate: regular rate Rhythm: regular rhythm GI: Auscultation: normal bowel sounds Neuro: General: oriented to person and moves all extremities Cranial nerves: Yes CN's II-XII intact bilaterally, Yes Equal, round and reactive pupils present, Yes Nystagmus not present, Yes Midline tongue present and Yes Normal hearing present Cognition (Neuro): abnormal cognition Speech: Abnormal speech present Gait exam (Neuro): Unable to assess gait Motor exam (neuro): Abnormal motor strength present Sensory Exam: Sensory deficit (Neuro) Plantar Reflex Responses: upgoing (positive Babinski): left Psych: Appearance: disheveled Speech and movement: Slowed speech present (Psych) Affect: Labile affect present Attitude: Guarded attititude/behavior present Thought process: Impoverished thought process present Thought content: Yes Compulsions present (thought content) Insight: Poor insight present (Psych) Judgement: Poor judgement present (Psych) Objective Data Vital Signs Vital Signs: Vital Signs - 24 hr 10/21/20 14:00 10/21/20 20:00 10/21/20 20:15 Temperature 36.2 C L 36.5 C Pulse Rate 92 84 84 Respiratory Rate 18 18 18 Blood Pressure 138/79 113/67 Pulse Oximetry 96 92 92 10/22/20 05:26 10/22/20 09:04 10/22/20 09:32 Temperature 36.4 C L Pulse Rate 86 86 75 Respiratory Rate 18 Blood Pressure 112/56 L 86/43 L Pulse Oximetry 94 93 Intake/Output Intake/Output: Intake & Output 10/19/20 10/20/20 10/21/20 10/22/20 23:59 23:59 23:59 23:59 Intake Total 840 420 600 320 Balance 840 420 600 320 Meds/Results Medications: Active Medications Generic Name Dose Route Start Last Admin Trade Name Ambrosio PRN Reason Stop Dose Admin Acetaminophen 650 mg 10/03/20 15:53 10/18/20 08:42 Acetaminophen 325 Mg Tablet PO 650 mg Q4H PRN Administration Pain Bisacodyl 10 mg 10/03/20 15:53 Bisacodyl 10 Mg Suppository RECTAL DAILY PRN Constipation Docusate Sodium 100 mg 10/03/20 21:00 10/22/20 09:04 Docusate Sodium 100 Mg Capsule PO 100 mg Q12HR ANTONIO Administration Ezetimibe 10 mg 10/04/20 09:00 10/22/20 09:04 Ezetimibe 10 Mg Tablet PO 10 mg DAILY ANTONIO Administration Heparin Sodium (Porcine) 5,000 units 10/03/20 21:00 10/22/20 09:05 Heparin Sodium 5,000 Units/Ml Vial SUB-Q 5,000 units Q12HR ANTONIO Administration Isosorbide Mononitrate 60 mg 10/04/20 09:00 10/22/20 09:04 Isosorbide Mononitrate 60 Mg Tab.Er.24h PO 60 mg DAILY ANTONIO Administration Lacosamide 100 mg 10/03/20 21:00 10/22/20 09:06 Lacosamide (*Crx) 100 Mg Tablet PO 100 mg Q12HR ANTONIO Administration Levetiracetam 500 mg 10/03/20 21:00 10/22/20 09:04 Levetiracetam 500 Mg Tablet PO 500 mg Q12HR ANTONIO Administration Melatonin 3 mg 10/03/20 21:00 10/21/20 21:46 Melatonin
[2020-10-22 12:04] LABS: Basophils Percent Auto 0.4 % (0.2-1.2); Eosinophils Absolute Auto 0.1 K/mm3 (0-0.3); Eosinophils Percent Auto 2.2 % (0-4.4); Hematocrit 33.2 % (37.0-47.0); Hemoglobin 10.9 g/dL (12.0-15.0); Immature Granulocyte Absolute 0.02 K/mm3 (0.00-0.031); Immature Granulocyte Percent A 0.4 % (0-0.5); Lymphocytes Absolute Auto 0.94 K/mm3 (0.9-3.2); Lymphocytes Percent Auto 17.1 % (18.3-44.2); Mean Corpuscular HGB Conc 32.8 g/dl (32-36); Mean Corpuscular Hemoglobin 33.1 pg (26-34); Mean Corpuscular Volume 100.9 fl (80-100); Mean Platelet Volume 10.8 fl (7.4-10.4); Monocytes Absolute Auto 0.7 K/mm3 (0.1-0.6); Monocytes Percent Auto 11.8 % (2.6-8.5); Neutrophils Absolute Auto 3.7 K/mm3 (1.3-6.7); Neutrophils Percent Auto 68.1 % (45.5-73.1); Platelet Count Result 135 k/mm3 (150-375); Red Blood Count 3.29 M/mm3 (4.2-5.4); Red Cell Distribution Width 12.5 % (11.5-14.5); White Blood Count 5.5 K/mm3 (4.5-10.0)
[2020-10-22 12:15] LABS: Alanine Aminotransferase 21 U/L (4-35); Albumin Level 3.4 g/dL (3.5-5.1); Alkaline Phosphatase 54 U/L (38-126); Anion Gap 5 mmol/L (8-16); Aspartate Amino Transferase 30 U/L (14-36); Bilirubin,Total 0.5 mg/dL (0.2-1.3); Blood Urea Nitrogen 40 mg/dL (7-17); Calcium 9.1 mg/dL (8.4-10.2); Carbon Dioxide 27 mmol/L (22-30); Chloride 106 mmol/L (98-107); Estimated CRCL calculation 21 ml/min; Estimated Glomerular Filt Rate 31; Glucose 116 mg/dL (65-105); Potassium 4.8 mmol/L (3.4-5.0); Sodium 138 mmol/L (137-145)
--- NOTE | 2020-10-22 14:32 | WPDNEUROLOGY ---
Neurology EEG Report General Information Date of Study: 10/22/20 TEST eeg DIAGNOSIS Confusion CONDITION OF RECORDING awake drowsy and sleep EEG NUMBER 21-56 CLINICAL HISTORY change in the level of consciousness patient reportedly had a brain bleed ox couple of weeks ago though at present she feels she is going better but definitely intermittently confused the EEG DESCRIPTION whole record consists of low to medium voltage 5 to 7 hertz per 2nd theta admixed with intermittent low to medium voltage 2 to 3 hertz per 2nd delta activity and superimposed by low-voltage beta activity. Hyperventilation not done photic stimulation not done. Bilateral symmetrical sleep activity seen. Non paroxysmal nonfocal and nonlateralizing IMPRESSION abnormal record due to the park presence of bihemispheric theta and delta activity with right hemispheric dominance without evidence of any paroxysmal discharge. These abnormalities are consistent with the organic a metabolic encephalopathy possibility of focal structural lesion is likely clinical correlation recommended
[2020-10-22] MEDS: MELATONIN 3 MG TABLET PO (21:38)
[2020-10-23] VITALS (7 sets, daily range): BP systolic 111–130; BP diastolic 61–73; PULSE 68–80; RESP 16–20; TEMP 36.3–36.8; O2SAT 94–97; BMI 11.0
[2020-10-23] MEDS: CHOLECALCIFEROL 1,000 UNITS TABLET 5000 UNITS PO (09:01)
[2020-10-23] MEDS: LACOSAMIDE (*CRX) 100 MG TABLET PO ×2 (09:01→21:44)
[2020-10-23] MEDS: METOPROLOL SUCCINATE EXT REL 100 MG TABCR PO (09:01)
[2020-10-23] MEDS: NIFEdipine 30 MG TAB.ER.24 PO (09:03)
[2020-10-23] MEDS: levETIRAcetam 500 MG TABLET PO ×2 (09:03→21:47)
[2020-10-23] MEDS: HEPARIN SODIUM 5,000 UNITS/ML VIAL 5000 UNITS SUB-Q ×2 (09:03→21:47)
[2020-10-23] MEDS: PANTOPRAZOLE 40 MG TABLET PO (09:03)
[2020-10-23] MEDS: EZETIMIBE 10 MG TABLET PO (09:03)
[2020-10-23] MEDS: ISOSORBIDE MONONITRATE 60 MG TAB.ER.24H PO (09:03)
[2020-10-23] MEDS: SENNOSIDES 8.6 MG TABLET PO ×2 (09:03→21:48)
[2020-10-23] MEDS: DOCUSATE SODIUM 100 MG CAPSULE PO ×2 (09:03→21:46)
--- NOTE | 2020-10-23 12:26 | PCNFU ---
Nutrition Follow-Up Complete: Inadequate energy needs related to poor appetite as evidenced by patient refusing to eat at meals. Goal: Patient to consume 75% of meals/supplements or greater Patient only meets goal about 30% of the time. No new goal at this time. Pt current nutrition is regular diet with level 6 soft and bite sized, Mildly Thick Liquids level 2, Ensure Enlive TID Last recorded weight is 71.8 kg. Recommend re-weighing patient. Bowel Motility: + BM 10/23/2020 Labs Reviewed: Hgb 10.9, Hct 33.2, Alb 3.4, GFR 31, BUN 40, Cr 1.6, Glu 116 Meds Noted: Zetia, Protonix, Toprol xl, Keppra Tablet, Vimpat, Imdur, Colace Capsule Additional Notes: Spoke with nurse aid. Patient fluctuates between eating and refusing to eat depending on her mood. She was feeding herself today, but sometimes requires extra assistance when eating. She does enjoy receiving her Ensure Enlive supplements TID providing an additional 350 calories and 20 grams of protein. Will monitor, weight, labs, medications, and oral intake every 5 days.
--- NOTE | 2020-10-23 12:54 | PCNSR ---
On 10/23/20, the student, Violette Ramos, provided care and completed [facility] documentation on this patient. I have reviewed the student's documentation and agree with the findings.
--- NOTE | 2020-10-23 14:29 | WPDNEURORHBP ---
Subjective Date/time seen: 10/23/20 14:29 status post fall with right subdural, intermittent confusion and difficulties in caring on the conversation, EEG is not paroxysmal but lately bihemispheric theta and delta activity consistent with the ongoing encephalopathy, most recent lab with WBC 5.5 hemoglobin 10.9 MCV 100.9 platelet count 135 electrolytes normal with a creatinine is 1.6 slowly creeping up medications unchanged Review of Systems Review of Systems: All systems reviewed & are unremarkable except as noted in HPI and below Functional Status Ambulation Ability Ability to Ambulate 10 Feet: Contact Guard Ability to Ambulate 50 Feet With 2 Turns: Contact Guard Ambulation Assistive Devices: Parallel Bars Exam Const: General: cooperative Nutritional Appearance: average body habitus Limitations: behavioral limitations Eyes: General: appearance normal, both eyes and all related structures Eyelids: eyelids normal Conjunctivae: conjunctivae normal Sclera: sclerae normal Cornea: corneas normal Pupils: Equal, round and reactive pupils present EOM: EOMs intact bilaterally Neck: Neck: full ROM Resp: Effort & Inspection: normal respiratory effort Auscultation: clear to auscultation bilaterally Cardio: Rate: regular rate GI: Auscultation: normal bowel sounds Neuro: General: patient oriented x3 Cranial nerves: Yes CN's II-XII intact bilaterally Speech: Abnormal speech present Motor exam (neuro): Abnormal motor strength present Sensory Exam: Sensory deficit (Neuro) Plantar Reflex Responses: downgoing: right and upgoing (positive Babinski): left Psych: Mental Status: other Speech and movement: Slowed speech present (Psych) Affect: Labile affect present Thought process: Impoverished thought process present Insight: Poor insight present (Psych) Judgement: Poor judgement present (Psych) Objective Data Vital Signs Vital Signs: Vital Signs - 24 hr 10/22/20 20:30 10/22/20 22:00 10/23/20 06:00 Temperature 36.8 C 36.3 C L Pulse Rate 98 98 79 Respiratory Rate 18 18 16 Blood Pressure 144/85 H 127/73 Pulse Oximetry 92 92 94 10/23/20 08:00 10/23/20 09:01 10/23/20 09:30 Temperature Pulse Rate 68 68 79 Respiratory Rate 16 Blood Pressure 125/70 Pulse Oximetry 94 97 Intake/Output Intake/Output: Intake & Output 10/20/20 10/21/20 10/22/20 10/23/20 23:59 23:59 23:59 23:59 Intake Total 420 600 560 480 Balance 420 600 560 480 Meds/Results Medications: Active Medications Generic Name Dose Route Start Last Admin Trade Name Ambrosio PRN Reason Stop Dose Admin Acetaminophen 650 mg 10/03/20 15:53 10/18/20 08:42 Acetaminophen 325 Mg Tablet PO 650 mg Q4H PRN Administration Pain Bisacodyl 10 mg 10/03/20 15:53 Bisacodyl 10 Mg Suppository RECTAL DAILY PRN Constipation Docusate Sodium 100 mg 10/03/20 21:00 10/23/20 09:03 Docusate Sodium 100 Mg Capsule PO 100 mg Q12HR ANTONIO Administration Ezetimibe 10 mg 10/04/20 09:00 10/23/20 09:03 Ezetimibe 10 Mg Tablet PO 10 mg DAILY ANTONIO Administration Heparin Sodium (Porcine) 5,000 units 10/03/20 21:00 10/23/20 09:03 Heparin Sodium 5,000 Units/Ml Vial SUB-Q 5,000 units Q12HR ANTONIO Administration Isosorbide Mononitrate 60 mg 10/04/20 09:00 10/23/20 09:03 Isosorbide Mononitrate 60 Mg Tab.Er.24h PO 60 mg DAILY ANTONIO Administration Lacosamide 100 mg 10/03/20 21:00 10/23/20 09:01 Lacosamide (*Crx) 100 Mg Tablet PO 100 mg Q12HR ANTONIO Administration Levetiracetam 500 mg 10/03/20 21:00 10/23/20 09:03 Levetiracetam 500 Mg Tablet PO 500 mg Q12HR ANTONIO Administration Melatonin 3 mg 10/03/20 21:00 10/22/20 21:38 Melatonin 3 Mg Tablet PO 3 mg HS ANTONIO Administration Metoprolol Succinate 100 mg 10/04/20 09:00 10/23/20 09:01 Metoprolol Succinate Ext Rel 100 Mg Tabcr PO 100 mg DAILY ANTONIO Administration Nifedipine 30 mg 10/04/20 09:00 10/23/20 09:03 Nifedipine 30
[2020-10-23] MEDS: MELATONIN 3 MG TABLET PO (21:48)
[2020-10-23 22:34] LABS: SARS-CoV-2 RNA PCR Negative
[2020-10-24] VITALS (7 sets, daily range): BP systolic 97–149; BP diastolic 52–64; PULSE 67–88; RESP 18; TEMP 36.3–37.2; O2SAT 92–98
[2020-10-24] MEDS: CHOLECALCIFEROL 1,000 UNITS TABLET 5000 UNITS PO (08:56)
[2020-10-24] MEDS: PANTOPRAZOLE 40 MG TABLET PO (08:57)
[2020-10-24] MEDS: ISOSORBIDE MONONITRATE 60 MG TAB.ER.24H PO (08:57)
[2020-10-24] MEDS: METOPROLOL SUCCINATE EXT REL 100 MG TABCR PO (08:57)
[2020-10-24] MEDS: levETIRAcetam 500 MG TABLET PO ×2 (08:59→20:21)
[2020-10-24] MEDS: HEPARIN SODIUM 5,000 UNITS/ML VIAL 5000 UNITS SUB-Q ×2 (08:59→20:21)
[2020-10-24] MEDS: SENNOSIDES 8.6 MG TABLET PO ×2 (09:00→20:22)
[2020-10-24] MEDS: NIFEdipine 30 MG TAB.ER.24 PO (09:00)
[2020-10-24] MEDS: EZETIMIBE 10 MG TABLET PO (09:00)
[2020-10-24] MEDS: DOCUSATE SODIUM 100 MG CAPSULE PO ×2 (09:00→20:21)
[2020-10-24] MEDS: LACOSAMIDE (*CRX) 100 MG TABLET PO ×2 (09:02→20:24)
--- NOTE | 2020-10-24 14:13 | WPDNEURORHBP ---
Subjective Date/time seen: 10/24/20 14:13 status post fall with right subdural hematoma in addition to intermittent confusion and difficulties in carrying on converse, initially patient has bilateral neurological sign because of the right subdural hematoma with cross compression and also she has was noted to be more and more confused when she received the short course of Decadron therapy the EEG was done there was no evidence of paroxysmal activity but definitely bihemispheric theta and delta activity compatible with the ongoing posttraumatic encephalopathy with the possibility of underlying neuro degenerative process as but on today's examination she definitely more bright more alert the family member or here they are sitting at the bedside she is could carrying on the conversation with them Review of Systems Review of Systems: All systems reviewed & are unremarkable except as noted in HPI and below Functional Status Ambulation Ability Ability to Ambulate 10 Feet: Contact Guard Ability to Ambulate 50 Feet With 2 Turns: Contact Guard Ambulation Assistive Devices: Parallel Bars Exam Const: General: cooperative and comfortable Nutritional Appearance: average body habitus Orientation/consciousness: oriented to person Resp: Effort & Inspection: normal respiratory effort and able to speak in complete sentences Auscultation: clear to auscultation bilaterally Cardio: Rate: regular rate GI: Auscultation: normal bowel sounds Neuro: General: oriented to person, oriented to place and Unable to assess gait Cranial nerves: Yes CN's II-XII intact bilaterally Cognition (Neuro): abnormal cognition Speech: Abnormal speech present ( slow) Gait exam (Neuro): Unable to assess gait Motor exam (neuro): Abnormal motor strength present Sensory Exam: Sensory deficit (Neuro) Psych: Mental Status: other Speech and movement: Slowed movement present (Neuro) Affect: Animated affect present Attitude: cooperative Thought process: Impoverished thought process present Thought content: Yes Derealization present Insight: Fair insight present (Psych) Judgement: Fair judgement present (Psych) Objective Data Vital Signs Vital Signs: Vital Signs - 24 hr 10/23/20 20:45 10/23/20 22:00 10/24/20 06:00 Temperature 36.6 C 36.3 C L Pulse Rate 78 78 67 Respiratory Rate 16 16 18 Blood Pressure 130/61 131/57 L Pulse Oximetry 94 94 92 10/24/20 08:00 10/24/20 08:57 Temperature Pulse Rate 67 67 Respiratory Rate 18 Blood Pressure Pulse Oximetry 92 Intake/Output Intake/Output: Intake & Output 10/21/20 10/22/20 10/23/20 10/24/20 23:59 23:59 23:59 23:59 Intake Total 600 560 720 240 Balance 600 560 720 240 Meds/Results Medications: Active Medications Generic Name Dose Route Start Last Admin Trade Name Freq PRN Reason Stop Dose Admin Acetaminophen 650 mg 10/03/20 15:53 10/18/20 08:42 Acetaminophen 325 Mg Tablet PO 650 mg Q4H PRN Administration Pain Bisacodyl 10 mg 10/03/20 15:53 Bisacodyl 10 Mg Suppository RECTAL DAILY PRN Constipation Docusate Sodium 100 mg 10/03/20 21:00 10/24/20 09:00 Docusate Sodium 100 Mg Capsule PO 100 mg Q12HR ANTONIO Administration Ezetimibe 10 mg 10/04/20 09:00 10/24/20 09:00 Ezetimibe 10 Mg Tablet PO 10 mg DAILY ANTONIO Administration Heparin Sodium (Porcine) 5,000 units 10/03/20 21:00 10/24/20 08:59 Heparin Sodium 5,000 Units/Ml Vial SUB-Q 5,000 units Q12HR ANTONIO Administration Isosorbide Mononitrate 60 mg 10/04/20 09:00 10/24/20 08:57 Isosorbide Mononitrate 60 Mg Tab.Er.24h PO 60 mg DAILY ANTONIO Administration Lacosamide 100 mg 10/03/20 21:00 10/24/20 09:02 Lacosamide (*Crx) 100 Mg Tablet PO 100 mg Q12HR ANTONIO Administration Levetiracetam 500 mg 10/03/20 21:00 10/24/20 08:59 Levetiracetam 500 Mg Tablet PO 500 mg Q12HR ANTONIO Administration Melatonin 3 mg 10/03/20 21:00 10/23/20 21:48 Melatonin 3 Mg Tablet PO
[2020-10-24] MEDS: MELATONIN 3 MG TABLET PO (20:22)
[2020-10-25 05:39] LABS: Anion Gap 8 mmol/L (8-16); Blood Urea Nitrogen 45 mg/dL (7-17); Carbon Dioxide 26 mmol/L (22-30); Chloride 108 mmol/L (98-107); Estimated CRCL calculation 21 ml/min; Estimated Glomerular Filt Rate 31; Glucose 95 mg/dL (65-105); Potassium 5.3 mmol/L (3.4-5.0); Sodium 142 mmol/L (137-145)
[2020-10-25 05:47] LABS: Basophils Percent Auto 0.4 % (0.2-1.2); Eosinophils Absolute Auto 0.2 K/mm3 (0-0.3); Eosinophils Percent Auto 3.4 % (0-4.4); Hematocrit 31.2 % (37.0-47.0); Hemoglobin 10.7 g/dL (12.0-15.0); Immature Granulocyte Absolute 0.02 K/mm3 (0.00-0.031); Immature Granulocyte Percent A 0.4 % (0-0.5); Immature Platelet Fraction Pct 3.3 % (0.9-11.2); Lymphocytes Absolute Auto 1.12 K/mm3 (0.9-3.2); Lymphocytes Percent Auto 21.3 % (18.3-44.2); Mean Corpuscular HGB Conc 34.3 g/dl (32-36); Mean Corpuscular Hemoglobin 33.3 pg (26-34); Mean Corpuscular Volume 97.2 fl (80-100); Mean Platelet Volume 11.3 fl (7.4-10.4); Monocytes Absolute Auto 0.6 K/mm3 (0.1-0.6); Neutrophils Absolute Auto 3.3 K/mm3 (1.3-6.7); Neutrophils Percent Auto 63.5 % (45.5-73.1); Platelet Count Result 139 k/mm3 (150-375); Red Blood Count 3.21 M/mm3 (4.2-5.4); Red Cell Distribution Width 12.1 % (11.5-14.5); White Blood Count 5.3 K/mm3 (4.5-10.0)
[2020-10-25 06:00] VITALS: BP 151/84; PULSE 74; RESP 18; TEMP 36.3; O2SAT 94
[2020-10-25 08:00] VITALS: PULSE 74; RESP 18; O2SAT 94
[2020-10-25] MEDS: levETIRAcetam 500 MG TABLET PO (09:19)
[2020-10-25] MEDS: ISOSORBIDE MONONITRATE 60 MG TAB.ER.24H PO (09:19)
[2020-10-25] MEDS: NIFEdipine 30 MG TAB.ER.24 PO (09:20)
[2020-10-25] MEDS: CHOLECALCIFEROL 1,000 UNITS TABLET 5000 UNITS PO (09:20)
[2020-10-25] MEDS: PANTOPRAZOLE 40 MG TABLET PO (09:20)
[2020-10-25] MEDS: DOCUSATE SODIUM 100 MG CAPSULE PO (09:20)
[2020-10-25] MEDS: HEPARIN SODIUM 5,000 UNITS/ML VIAL 5000 UNITS SUB-Q (09:20)
[2020-10-25] MEDS: EZETIMIBE 10 MG TABLET PO (09:20)
[2020-10-25 09:21] VITALS: PULSE 74
[2020-10-25] MEDS: METOPROLOL SUCCINATE EXT REL 100 MG TABCR PO (09:21)
[2020-10-25] MEDS: SENNOSIDES 8.6 MG TABLET PO (09:21)
[2020-10-25] MEDS: LACOSAMIDE (*CRX) 100 MG TABLET PO (09:23)
--- NOTE | 2020-10-25 13:34 | WPDNEURORHBP ---
Subjective Date/time seen: 10/25/20 13:34 is status post fall with right subdural hematoma along with the bilateral signs raising the possibility of midline shift in addition to the underlying dementia as well,EEG revealed no evidence of paroxysmal discharge but definitely bihemispheric slow activity consistentwith the ongoing metabolic encephalopathy or neuro degenerative process patient will be discharged to detention unit for the ongoing therapy, yesterday she was definitely more sharp and today again she is more confused Review of Systems Review of Systems: All systems reviewed & are unremarkable except as noted in HPI and below Functional Status Ambulation Ability Ability to Ambulate 10 Feet: Contact Guard Ability to Ambulate 50 Feet With 2 Turns: Contact Guard Ambulation Assistive Devices: Parallel Bars Exam Const: General: cooperative, no acute distress, alert, awake, anxious and confusion Nutritional Appearance: average body habitus Orientation/consciousness: oriented to person Limitations: behavioral limitations and physical limitations HENMT: Head: normocephalic Ears: hearing grossly normal bilaterally General nose exam: Normal external nose present and No nasal discharge present Face and sinus: normal facial exam Mouth: Yes Normal oral and palatal mucosa present Eyes: General: appearance normal, both eyes and all related structures Alignment and Position: alignment normal Periorbital: periorbital findings normal Eyelids: eyelids normal Conjunctivae: conjunctivae normal Sclera: sclerae normal Cornea: corneas normal Pupils: Equal, round and reactive pupils present EOM: EOMs intact bilaterally Neck: Neck: full ROM Resp: Effort & Inspection: normal respiratory effort Auscultation: clear to auscultation bilaterally Cardio: Rate: regular rate Rhythm: regular rhythm GI: Auscultation: normal bowel sounds Skin: General skin exam: no rashes or lesions noted Neuro: General: oriented to person, oriented to place, gait normal ( abnormal), tone normal, moves all extremities, no meningeal signs, confusion and Unable to assess gait Cranial nerves: Yes CN's II-XII intact bilaterally, Yes Nystagmus not present, Yes Normal facial strength present, Yes facial symmetry, Yes Midline tongue present, Yes Normal hearing present, Yes Ability to bilaterally rotate head present and Yes Ability to bilaterally elevate shoulders present Cognition (Neuro): abnormal cognition Speech: Abnormal speech present ( slow hesitant) Details: slurred Gait exam (Neuro): Unable to assess gait Motor exam (neuro): Abnormal motor strength present Sensory Exam: Sensory deficit (Neuro) Deep tendon reflexes (DTR's): Right triceps reflex intensity grade: 1+, Left triceps reflex intensity grade: 1+, Rt Biceps (C5, C6): 1+, Left biceps reflex intensity grade: 1+, Right brachioradialis reflex intensity grade: 1+, Left brachioradialis reflex intensity grade: 1+, Right patellar reflex intensity grade: 1+, Left patellar reflex intensity grade: 1+, Right ankle reflex intensity grade: 1+ and Left ankle reflex intensity grade: 1+ Plantar Reflex Responses: downgoing: bilateral Psych: Appearance: disheveled Speech and movement: Slowed speech present (Psych) and Slowed movement present (Neuro) Affect: Sad affect present and Anxious affect present Attitude: cooperative Thought process: Impoverished thought process present Thought content: Yes Depressive thoughts present Insight: Poor insight present (Psych) Judgement: Poor judgement present (Psych) Objective Data Vital Signs Vital Signs: Vital Signs - 24 hr 10/24/20 14:00 10/24/20 20:45 10/24/20 22:00 Temperature 37.2 C 36.3 C L Pulse Rate 88 80 80 Respiratory Rate 18 18 18 Blood Pressure 98/64 L 149/57 H Pulse Oximetry 98 94 94 10/25/20 06:00 10/25/20 08:00 10/25/20 09:21 Temperature 36.3 C L Pulse Rate 74 74 74 Respiratory Rate 18 18 Blood Pressure 151/84 H Pulse Oximetry 94 94 Intake
--- NOTE | 2020-10-28 15:36 | PM.DS ---
DS: Admitting Diagnosis Admitting Diagnosis Admitting Diagnosis: brain dysfunction with right subdural hematoma and with no surgical intervention DS: Summary Hospital Course Hospital Course: fluctuating course with cerebral dysfunction because of the underlying comorbid condition and the subdural hematoma Time Spent with Patient Time attestation: Total time spent providing and/or coordinating discharge services: ADMISSION FUNCTION: 85 years old right-handed female admitted to the rehab floor with primary rehab impairment category of brain dysfunction there is traumatic in nature and etiological diagnosis of acute traumatic right subdural hematoma without any surgical intervention prior to the transfer and in addition to the comorbid conditions of 1. Hypertension 2. Hyperlipidemia 3. Atrial fibrillation 4. Cerebrovascular accident 5. Myocardial infarction 6. Permanent pacemaker in 7 chronic renal disease the at the time of admission herQIM. measures were as follows. Eating substantial or maximal assistance Oral Care substantial or maximal assistance Toileting Hygiene dependent Upper Body Dressing substantial or maximal assistance Lower Body Dressing dependent Donning/[place] Footwear dependent Rolling Left and Right dependent Sit to Lying dependent Lying to Sitting dependent Sit to Stand dependent Bed to Chair Transfers substantial or maximal assistance Toilet Transfers dependent Car Transfers unable Walking 10' unable Walking 50' with Two Turns unable Walking 150' unable Curb or Step unable 4 Steps unable 12 Steps unable Picking Up Object unable [Wheelchair Mobility 50'] unable [Wheelchair Mobility 150'] unable GOALS: Eating supervision Oral Care supervision Toileting Hygiene partial assistance Shower/Bathing partial cancer genetics assistant Upper Body Dressing supervision Lower Body Dressing partial assisted Donning/[place] Footwear partial assisted Rolling Left and Right partial cancer genetics assistant Sit to Lying partial cancer genetics assistant Lying to Sitting partial cancer genetics assistant Sit to Stand partial assistance Bed to Chair Transfers partial assistance Toilet Transfers partial cancer genetics assistant Car Transfers partial assistance Walking 10' partial cancer genetics assistant Walking 50' with Two Turns partial cancer genetics assistant Walking 150' not applicable Curb or Step not applicable 4 Steps not not applicable 12 Steps no not applicable Picking Up Object partial assist [Wheelchair Mobility 50'] super B [Wheelchair Mobility 150'] supervising DISCHARGE PERFORMANCE: Eating supervision Oral Care partial assisted Toileting Hygiene substantial assistance Shower/Bathing substantial assistance Upper Body Dressing substantial assisted Lower Body Dressing dependent Donning/[place] Footwear dependent Rolling Left and Right substantial assistance Sit to Lying substantial assistance Lying to Sitting substantial assisted Sit to Stand dependent Bed to Chair Transfers dependent Toilet Transfers substantial assistance Car Transfers unable Walking 10' unable Walking 50' with Two Turns unable Walking 150' unable Curb or Step unable 4 Steps unable 12 Steps unable Picking Up Object unable [Wheelchair Mobilit [Wheelchair Mobility 150'] unable] # during the hospitalization patient was involved in the physical therapy and occupational therapy initially with some difficulties subsequently more regularly but finally becoming more difficult. Subsequent to the hospitalization she had a seizure and was started on the anticonvulsants. At 1 time EEG was obtained because of fluctuating mental status and to evaluate with she is having focal seizures but EEG documented bihemispheric dysfunction. Family is meeting were consistent with underlying some difficulties prior to this particular incident but during this hospitalization it was becoming more obvious that she has underlying ongoing dementia. Her neurological status was with right subdural secondary across the tentorium cross compressi
== END 2020-10-25 15:17 | DRG 949 ==
PROVIDERS: Admitting Provider Psychiatry & Neurology Neurology; PCP Internal Medicine; Visit Provider Psychiatry & Neurology Neurology
DX: S06.5X0D Traumatic subdural hemorrhage without loss of consciousness, subsequent encounter (principal); I69.351 Hemiplegia and hemiparesis following cerebral infarction affecting right dominant side; N18.4 Chronic kidney disease, stage 4 (severe); F03.90 Unspecified dementia, unspecified severity, without behavioral disturbance, psychotic disturbance, mood disturbance, and anxiety; W19.XXXD Unspecified fall, subsequent encounter; Z20.822 Contact with and (suspected) exposure to COVID-19; I12.9 Hypertensive chronic kidney disease with stage 1 through stage 4 chronic kidney disease, or unspecified chronic kidney disease; E78.5 Hyperlipidemia, unspecified; I48.91 Unspecified atrial fibrillation; I25.2 Old myocardial infarction; D63.1 Anemia in chronic kidney disease; R56.9 Unspecified convulsions; Z95.0 Presence of cardiac pacemaker; Z87.891 Personal history of nicotine dependence
CPT/HCPCS: 36415; 70450; 80048; 80053; 80061; 80177; 85025; 85055; 92507; 92523; 92526; 92610; 95816; 97110; 97116; 97129; 97130; 97161; 97167; 97530; 97535; 97542; A9270; C9803; J1644; J7042; J8540; U0003; U0005